=== PATIENT | female | born 1995 | race Caucasian/White ===

== ENCOUNTER → 2021-05-11 17:18 | Outpatient (BNVA) | payer MEDICAID, SELFPAY | PROVIDERS: Visit Provider Nurse Practitioner | DX: Z20.822 Contact with and (suspected) exposure to COVID-19 (principal) | CPT/HCPCS: 87635 ==

== ENCOUNTER 2021-05-14 20:47 | Emergency (ER) | payer BC, MEDICAID, SELFPAY ==
--- NOTE | 2021-05-14 21:03 | XRR_ITS ---
PROCEDURE INFORMATION: Exam: XR Chest Exam date and time: 05/14/2021 9:03 PM Age: 25 years old Clinical indication: Cough and shortness of breath; Additional info: SOB TECHNIQUE: Imaging protocol: XR of the chest. Views: 1 view. COMPARISON: No relevant prior studies available. FINDINGS: Lungs: Subtle opacity in the peripheral right lung base. Pleural spaces: Unremarkable. No pleural effusion. No pneumothorax. Heart/Mediastinum: Unremarkable. No cardiomegaly. Bones/joints: Unremarkable. XR/XR chest 1V portable [id number] IMPRESSION: Subtle opacity in the peripheral right lung base. Findings may reflect atelectasis with developing consolidation not excluded. Radiation Dose CTDIVOL = (mGy): DLP = (mGy-cm)
[2021-05-14 21:06] VITALS: BP 91/60; PULSE 82; RESP 20; TEMP 38.2; O2SAT 100
--- NOTE | 2021-05-14 21:50 | ED_ITS ---
Documented by User: MOISES Jackson 05/15/21 02:33 HPI - COVID General: Chief Complaint: COVID symptoms Time Seen by Provider: 05/14/21 21:37 Triage information: No known COVID + exposure last 14 days History of Present Illness: HPI Narrative: Patient is a 25-year-old female comes to the ED with upper respiratory symptoms. Patient tested positive for COVID-19 3 days ago. She reports having a dry cough cough, fever, nausea/vomiting and decreased food and fluid intake over the past couple days. She also reports having shortness of breath that has gotten worse over the last 24 hours. Patient took some Robitussin this morning. She has not received the COVID-19 vaccinations. COVID 19 common symptoms: positive fever(s), non-productive cough, dyspnea, fatigue, nausea and vomiting; negative chills, productive cough, headache(s), throat pain, nasal congestion or diarrhea COVID 19 other sytmptoms: negative chest pain COVID Results: SARS-CoV-2 RNA (RT-PCR) Detected (NOT DETECTED) A 05/11/21 17:18 05/11/21 Review of Systems Const: Reports: fever(s), change in appetite (decreased) and fatigue; Denies: chills Eyes: Denies: change in vision or eye discomfort ENMT: Denies: throat pain, odynophagia, nasal discharge or nasal congestion Card: Denies: chest pain, palpitations, edema, swelling of feet/ankles, dyspnea on exertion or orthopnea Resp: Reports: dyspnea and non-productive cough; Denies: productive cough GI: Reports: nausea and vomiting; Denies: abdominal pain, diarrhea, constipation or hematochezia : Denies: flank pain, dysuria or hematuria Musc: Denies: neck pain, back pain or extremity swelling Skin/Breast: Denies: rash or new lesions Neuro: Denies: headache(s), numbness in extremities or weakness in extremities Physical Exam Const: COMMON NORMALS: patient oriented x3 and alert GENERAL APPEARANCE: cooperative and ill appearing NUTRITIONAL APPEARANCE: obese HENMT: COMMON NORMALS: normocephalic HEAD & SCALP: normocephalic MOUTH: Normal oral and palatal mucosa present THROAT: posterior oropharynx normal and uvula midline Eye: COMMON NORMALS: Equal, round and reactive pupils present PUPIL: Yes Equal, round and reactive pupils present Neck/C-Spine: COMMON NORMALS: supple GENERAL: Yes normal visual inspection Resp: COMMON NORMALS: normal respiratory effort, No retractions and No use of accessory muscles EFFORT & INSPECTION: Yes able to speak in complete sentences, Yes tachypneic and Yes Actively coughing (Multiple coughing episodes throughout exam) dry AUSCULTATION: wheezes throughout Cardio: COMMON NORMALS: regular rate, regular rhythm, S1 normal heart sound present, S2 normal heart sound present, No gallops present (Cardio), No clicks present (Cardio), No murmurs present (Cardio) and Peripheral pulses 2+ throughout RATE: regular rate RHYTHM: regular rhythm HEART SOUNDS: S1 normal heart sound present and S2 normal heart sound present PERIPHERAL PULSES: Peripheral pulses 2+ throughout GI: COMMON NORMALS: Normal to inspection, nondistended, normoactive bowel sounds present, Soft to palpation, non-tender and no masses INSPECTION: Yes central obesity PALPATION: Yes Soft to palpation : COMMON NORMALS: Yes no CVA tenderness BLADDER/KIDNEY EXAM: Yes no CVA tenderness Back/Pelvis: COMMON NORMALS: no CVA tenderness Extremity: COMMON NORMALS: normal to inspection Neuro: COMMON NORMALS: patient oriented x3 and moves all extremities SENSORIUM/ORIENTATION: Yes alert Skin: GENERAL SKIN EXAM: dry skin Course Vital Signs: Vital signs: Vital Signs Temperature 99.0 F 05/15/21 01:11 Pulse Rate 80 05/15/21 01:11 Respiratory Rate 24 H 05/15/21 01:11 Blood Pressure 104/60 05/15/21 01:11 Pulse Oximetry 98 05/15/21 01:11 MDM - COVID Lab Data: Attestation: I reviewed the patient's lab results. Labs: Lab Results 05/14/21 05/14/21 05/14/21 22:20 22:20 22:20 WBC 4.7 10^3/uL 10^3/ uL (4.0-10.0) RBC 4.89 10^6/uL 10^6 /uL (4.1-5.3) Hgb 13.4 g/dL g/dL (11.5-15.3) Hct 41.7 % % (37.0-47.0) MCV 85.3 fl fl (81-99) MCH 27.4 pg L pg (28.0-34.0) MCHC 32.1 g/dL g/dL (30.0-36.0) RDW 13.3 % % (12.1-15.1) Plt Count 171 10^3/cmm 10^3 /cmm (130-400) MPV 10.4 fL fL (7.4-10.4) Neut % (Auto) 60.1 % % Lymph % (Auto) 32.8 % % Bulloch % (Auto) 6.9 % % Eos % (Auto) 0.0 % % Baso % (Auto) 0.0 % % Neut # (Auto) 2.81 10^3/uL 10^3 /uL (1.8-7.7) Lymph # (Auto) 1.5 10^3/uL 10^3/ uL (0.8-4.8) Bulloch # (Auto) 0.3 10^3/uL 10^3/ uL (0.2-0.9) Eos # (Auto) 0.0 10^3/uL 10^3/ uL (0.0-0.8) Baso # (Auto) 0.0 10^3/uL 10^3/ uL (0.0-0.1) Nucleated RBC % (a uto) 0 % % Nucleated RBCs # 0.0 /100WBC /100W BC D-Dimer 0.82 ug/mIFEU H u g/mIFEU (0-0.59) Specimen Type Sample Site ABG pO2 ABG HCO3 ABG Base Excess Young Test Hematocrit O2 Delivery Device Fabrication Engineer ID Sodium 139 mmol/L mmol/L (136-145) Potassium 3.5 mmol/L mmol/L (3.5-5.1) Chloride 99 mmol/L mmol/L (98-107) Carbon Dioxide 24 mmol/L mmol/L (22-29) Anion Gap 19.5 H (5-19) BUN 10 mg/dL mg/dL (6-20) Creatinine 0.8 mg/dL mg/dL (0.5-0.9) GFR Calculation 88.1 mL/min L mL/ min (90-130) Glucose 84 mg/dL mg/dL (65-115) Calculated Osmolal ity 286 mOsm/kg mOsm/ kg (285-295) Lactic Acid Calcium 8.7 mg/dL mg/dL (8.5-10.5) Total Bilirubin 0.5 mg/dL mg/dL (0.15-1.2) AST 32 U/L U/L (0-32) ALT 20 U/L U/L (0-33) Alkaline Phosphata se 65 IU/L IU/L (35-105) Total Protein 7.6 g/dL g/dL (6.6-8.7) Albumin 3.9 g/dL g/dL (3.5-5.2) Globulin 3.7 g/dL g/dL (1.3-4.6) Lipase 79 U/L H U/L (13-60) HCG, Qual 05/14/21 05/14/21 05/14/21 22:20 22:20 22:56 WBC RBC Hgb Hct MCV MCH MCHC RDW Plt Count MPV Neut % (Auto) Lymph % (Auto) Bulloch % (Auto) Eos % (Auto) Baso % (Auto) Neut # (Auto) Lymph # (Auto) Bulloch # (Auto) Eos # (Auto) Baso # (Auto) Nucleated RBC % (a uto) Nucleated RBCs # D-Dimer Specimen Type Arterial Sample Site Radial, right ABG pO2 73.8 mmHg L mmHg (80.0-100.0) ABG HCO3 20.0 mmol/L L mmo l/L (22-26) ABG Base Excess 1.2 mmol/L mmol/L (-2.0-2.0) Young Test Pos Hematocrit 37.4 % % (37-47) O2 Delivery Device Room air Fabrication Engineer ID Tamma Sodium Potassium Chloride Carbon Dioxide Anion Gap BUN Creatinine GFR Calculation Glucose Calculated Osmolal ity Lactic Acid 2.4 mmol/L H mmol /L (0.5-2.2) Calcium Total Bilirubin AST ALT Alkaline Phosphata se Total Protein Albumin Globulin Lipase HCG, Qual Negative (Negative) COVID Results: SARS-CoV-2 RNA (RT-PCR) Detected (NOT DETECTED) A 05/11/21 17:18 05/11/21 Discharge Plan Discharge Patient Disposition: Home Clinical Impression: COVID-19, Dehydration Condition: Stable Prescriptions: No Action No Known Home Medications RF: 0 Discharge Orders: Discharge ED (Routine); Ordered 05/15/21 Ordered By: Colleen Carlos Discharge Diet: Advance as tolerated Discharge Activity: Resume usual activity Patient Instructions: Dehydration (ED), Viral Syndrome (ED) Coding Level of Care Code ED Office Support Clerk for Chg Fwd Exam Comprehensive Documented by User: Colleen Carlos MD 05/15/21 00:32 HPI - COVID General: Chief Complaint: COVID symptoms Time Seen by Provider: 05/14/21 21:37 COVID Results: SARS-CoV-2 RNA (RT-PCR) Detected (NOT DETECTED) A 05/11/21 17:18 05/11/21 Physical Exam Const: COMMON NORMALS: no acute distress, patient oriented x3 and healthy appearing HENMT: COMMON NORMALS: normocephalic and atraumatic HEAD & SCALP: normocephalic and atraumatic Eye: COMMON NORMALS: Equal, round and reactive pupils present and EOMs intact bilaterally PUPIL: Yes Equal, round and reactive pupils present Neck/C-Spine: COMMON NORMALS: full ROM and supple Chest: COMMONS NORMALS: normal inspection of the chest and normal palpation of entire chest wall Resp: COMMON NORMALS: normal respiratory effort, No retractions, No use of accessory muscles and clear to auscultation bilaterally AUSCULTATION: clear to auscultation bilaterally Cardio: COMMON NORMALS: regular rate, regular rhythm and No murmurs present (Cardio) RATE: regular rate RHYTHM: regular rhythm GI: COMMON NORMALS: Normal to inspection, nondistended, normoactive bowel sounds present, Soft to palpation, non-tender and no masses PALPATION: Yes Soft to palpation Extremity: COMMON NORMALS: normal to inspection and full ROM Neuro: COMMON NORMALS: patient oriented x3, moves all extremities and no focal motor deficits Psych: COMMON NORMALS: mental status grossly normal, Normal thought process present and cooperative THOUGHT PROCESS: Normal thought process present Skin: COMMON NORMALS: no rashes or lesions noted and no wounds GENERAL SKIN EXAM: no rashes or lesions noted Course Vital Signs: Vital signs: Vital Signs Temperature 99.0 F 05/15/21 01:11 Pulse Rate 80 05/15/21 01:11 Respiratory Rate 24 H 10/13/21 01:11 Blood Pressure 104/60 05/15/21 01:11 Pulse Oximetry 98 05/15/21 01:11 MDM - COVID MDM Narrative: Medical decision making narrative: Patient presents here with Covid likely causing her symptoms patient was dehydrated feels much improved after IV fluids and her blood pressure is improved patient CT shows no acute findings besides changes consistent with Covid she is stable for discharge she is to follow-up PCP and return with worsening. Lab Data: Labs: Lab Results 05/14/21 05/14/21 05/14/21 22:20 22:20 22:20 WBC 4.7 10^3/uL 10^3/ uL (4.0-10.0) RBC 4.89 10^6/uL 10^6 /uL (4.1-5.3) Hgb 13.4 g/dL g/dL (11.5-15.3) Hct 41.7 % % (37.0-47.0) MCV 85.3 fl fl (81-99) MCH 27.4 pg L pg (28.0-34.0) MCHC 32.1 g/dL g/dL (30.0-36.0) RDW 13.3 % % (12.1-15.1) Plt Count 171 10^3/cmm 10^3 /cmm (130-400) MPV 10.4 fL fL (7.4-10.4) Neut % (Auto) 60.1 % % Lymph % (Auto) 32.8 % % Bulloch % (Auto) 6.9 % % Eos % (Auto) 0.0 % % Baso % (Auto) 0.0 % % Neut # (Auto) 2.81 10^3/uL 10^3 /uL (1.8-7.7) Lymph # (Auto) 1.5 10^3/uL 10^3/ uL (0.8-4.8) Bulloch # (Auto) 0.3 10^3/uL 10^3/ uL (0.2-0.9) Eos # (Auto) 0.0 10^3/uL 10^3/ uL (0.0-0.8) Baso # (Auto) 0.0 10^3/uL 10^3/ uL (0.0-0.1) Nucleated RBC % (a uto) 0 % % Nucleated RBCs # 0.0 /100WBC /100W BC D-Dimer 0.82 ug/mIFEU H u g/mIFEU (0-0.59) Specimen Type Sample Site ABG pO2 ABG HCO3 ABG Base Excess Young Test Hematocrit O2 Delivery Device Fabrication Engineer ID Sodium 139 mmol/L mmol/L (136-145) Potassium 3.5 mmol/L mmol/L (3.5-5.1) Chloride 99 mmol/L mmol/L (98-107) Carbon Dioxide 24 mmol/L mmol/L (22-29) Anion Gap 19.5 H (5-19) BUN 10 mg/dL mg/dL (6-20) Creatinine 0.8 mg/dL mg/dL (0.5-0.9) GFR Calculation 88.1 mL/min L mL/ min (90-130) Glucose 84 mg/dL mg/dL (65-115) Calculated Osmolal ity 286 mOsm/kg mOsm/ kg (285-295) Lactic Acid Calcium 8.7 mg/dL mg/dL (8.5-10.5) Total Bilirubin 0.5 mg/dL mg/dL (0.15-1.2) AST 32 U/L U/L (0-32) ALT 20 U/L U/L (0-33) Alkaline Phosphata se 65 IU/L IU/L (35-105) Total Protein 7.6 g/dL g/dL (6.6-8.7) Albumin 3.9 g/dL g/dL (3.5-5.2) Globulin 3.7 g/dL g/dL (1.3-4.6) Lipase 79 U/L H U/L (13-60) HCG, Qual 05/14/21 05/14/21 05/14/21 22:20 22:20 22:56 WBC RBC Hgb Hct MCV MCH MCHC RDW Plt Count MPV Neut % (Auto) Lymph % (Auto) Bulloch % (Auto) Eos % (Auto) Baso % (Auto) Neut # (Auto) Lymph # (Auto) Bulloch # (Auto) Eos # (Auto) Baso # (Auto) Nucleated RBC % (a uto) Nucleated RBCs # D-Dimer Specimen Type Arterial Sample Site Radial, right ABG pO2 73.8 mmHg L mmHg (80.0-100.0) ABG HCO3 20.0 mmol/L L mmo l/L (22-26) ABG Base Excess 1.2 mmol/L mmol/L (-2.0-2.0) Young Test Pos Hematocrit 37.4 % % (37-47) O2 Delivery Device Room air Fabrication Engineer ID Tamma Sodium Potassium Chloride Carbon Dioxide Anion Gap BUN Creatinine GFR Calculation Glucose Calculated Osmolal ity Lactic Acid 2.4 mmol/L H mmol /L (0.5-2.2) Calcium Total Bilirubin AST ALT Alkaline Phosphata se Total Protein Albumin Globulin Lipase HCG, Qual Negative (Negative) Imaging Data: CT Chest: Attestation: I personally reviewed and interpreted this imaging study as follows: Radiologist's impression: [id number] [address] [address] Scan Report Signed Patient: Fariha Michael Unit #: [id number] : 1995 Age/Sex: 25 / F ADM Date: 05/14/21 Loc: ER Room/Bed: Attending Dr: Ordering Provider/Ordering MD: Colleen Carlos MD Date of Service: 05/14/21 Procedure(s): CT angio chest PE protcl [id number] Accession Number(s): [id number] Report Number: [id number] PROCEDURE INFORMATION: Exam: CTA Chest With Contrast Exam date and time: 05/14/2021 11:00 PM Age: 25 years old Clinical indication: Cough and shortness of breath; Patient HX: Cough with SOB. Elevated d dimer. Covid + TECHNIQUE: Imaging protocol: Computed tomographic angiography of the chest with contrast. 3D rendering (Not supervised by radiologist): MIP and/or 3D reconstructed images were created by the technologist. Radiation optimization: All CT scans at this facility use at least one of these dose optimization techniques: automated exposure control; mA and/or kV adjustment per patient size (includes targeted exams where dose is matched to clinical indication); or iterative reconstruction. Contrast material: OMNI 350; Contrast volume: 67 ml; Contrast route: INTRAVENOUS (IV); COMPARISON: CR (CHEST, ) 05/14/2021 9:24 PM RADIATION DOSE METRICS: Total DLP (mGy-cm): 463.17 FINDINGS: Pulmonary arteries: Normal. No pulmonary emboli. Aorta: Unremarkable. No aortic aneurysm. No aortic dissection. Lungs: Patchy bilateral airspace infiltrates suggestive of an infectious process. Pleural spaces: Unremarkable. No pneumothorax. No pleural effusion. Heart: Unremarkable. No cardiomegaly. No pericardial effusion. Lymph nodes: Scattered prominent mediastinal lymph nodes measuring up to 10 mm, nonspecific. Spleen: Spleen enlarged at 13.7 cm. Bones/joints: Unremarkable. No acute fracture. Soft tissues: Unremarkable. CT/CT angio chest PE protcl [id number] IMPRESSION: 1. Negative for pulmonary embolus. 2. Patchy bilateral airspace infiltrates suggestive of an infectious process. 3. Scattered prominent mediastinal lymph nodes measuring up to 10 mm, nonspecific. 4. Spleen enlarged at 13.7 cm. Radiation Dose CTDIVOL = (mGy): DLP = 463.17 (mGy-cm) Dictated By: Hosea Valente MD Signed By: Hosea Valente MD Signed Date/Time: 05/15/21 0026 DD/ 2300 COVID Results: SARS-CoV-2 RNA (RT-PCR) Detected (NOT DETECTED) A 05/11/21 17:18 05/11 Discharge Plan Discharge Patient Disposition: Home Clinical Impression: COVID-19, Dehydration Condition: Stable Prescriptions: No Action No Known Home Medications RF: 0 Discharge Orders: Discharge ED (Routine); Ordered 05/15/21 Ordered By: Colleen Carlos Discharge Diet: Advance as tolerated Discharge Activity: Resume usual activity Patient Instructions: Dehydration (ED), Viral Syndrome (ED) Coding Level of Care Code ED Office Support Clerk for Chg Fwd Exam Comprehensive
[2021-05-14] MEDS: sodium chloride 0.9% 1,000 ML 999 ML IV ×2 (22:25→22:57)
[2021-05-14 22:30] VITALS: PULSE 92; RESP 22; O2SAT 99
[2021-05-14] MEDS: albuterol 8 gm MDI 2 PUFF INHALATION (22:30)
[2021-05-14 22:35] VITALS: PULSE 95; RESP 22; O2SAT 99
[2021-05-14 22:38] VITALS: BP 79/43; PULSE 82; RESP 36; TEMP 39.3; O2SAT 94
[2021-05-14 22:42] LABS: Hematocrit 41.7 % (37.0-47.0); Hemoglobin 13.4 g/dL (11.5-15.3); Lymphocytes # 1.5 10^3/uL (0.8-4.8); Lymphocytes % 32.8 %; Mean Corpuscular HGB Conc 32.1 g/dL (30.0-36.0); Mean Corpuscular Hemoglobin 27.4 pg (28.0-34.0); Mean Corpuscular Volume 85.3 fl (81-99); Mean Platelet Volume 10.4 fL (7.4-10.4); Monocytes # 0.3 10^3/uL (0.2-0.9); Monocytes % 6.9 %; Neutrophils # 2.81 10^3/uL (1.8-7.7); Neutrophils % 60.1 %; Nucleated Red Blood Cells % 0 %; Platelet Count 171 10^3/cmm (130-400); Red Blood Count 4.89 10^6/uL (4.1-5.3); Red Cell Distribution Width 13.3 % (12.1-15.1); White Blood Count 4.7 10^3/uL (4.0-10.0)
[2021-05-14] MEDS: acetaminophen 500 mg Tablet 1000 MG PO (22:50)
[2021-05-14 22:55] LABS: HCG, Serum Qual Negative (Negative)
[2021-05-14 22:57] LABS: D Dimer 0.82 ug/mIFEU (0-0.59)
[2021-05-14] MEDS: ondansetron 2 mg/ML SDV 2 mL 4 MG IVP ×2 (22:58→23:08)
[2021-05-14 23:00] VITALS: BP 108/54; PULSE 77; RESP 33; O2SAT 98
--- NOTE | 2021-05-14 23:00 | CTR_ITS ---
PROCEDURE INFORMATION: Exam: CTA Chest With Contrast Exam date and time: 05/14/2021 11:00 PM Age: 25 years old Clinical indication: Cough and shortness of breath; Patient HX: Cough with SOB. Elevated d dimer. Covid + TECHNIQUE: Imaging protocol: Computed tomographic angiography of the chest with contrast. 3D rendering (Not supervised by radiologist): MIP and/or 3D reconstructed images were created by the technologist. Radiation optimization: All CT scans at this facility use at least one of these dose optimization techniques: automated exposure control; mA and/or kV adjustment per patient size (includes targeted exams where dose is matched to clinical indication); or iterative reconstruction. Contrast material: OMNI 350; Contrast volume: 67 ml; Contrast route: INTRAVENOUS (IV); COMPARISON: CR (CHEST, ) 05/14/2021 9:24 PM RADIATION DOSE METRICS: Total DLP (mGy-cm): 463.17 FINDINGS: Pulmonary arteries: Normal. No pulmonary emboli. Aorta: Unremarkable. No aortic aneurysm. No aortic dissection. Lungs: Patchy bilateral airspace infiltrates suggestive of an infectious process. Pleural spaces: Unremarkable. No pneumothorax. No pleural effusion. Heart: Unremarkable. No cardiomegaly. No pericardial effusion. Lymph nodes: Scattered prominent mediastinal lymph nodes measuring up to 10 mm, nonspecific. Spleen: Spleen enlarged at 13.7 cm. Bones/joints: Unremarkable. No acute fracture. Soft tissues: Unremarkable. CT/CT angio chest PE protcl [id number] IMPRESSION: 1. Negative for pulmonary embolus. 2. Patchy bilateral airspace infiltrates suggestive of an infectious process. 3. Scattered prominent mediastinal lymph nodes measuring up to 10 mm, nonspecific. 4. Spleen enlarged at 13.7 cm. Radiation Dose CTDIVOL = (mGy): DLP = 463.17 (mGy-cm)
[2021-05-14 23:02] LABS: Alanine Aminotransferase 20 U/L (0-33); Albumin Level 3.9 g/dL (3.5-5.2); Alkaline Phosphatase 65 IU/L (35-105); Anion Gap 19.5 (5-19); Aspartate Amino Transferase 32 U/L (0-32); Blood Urea Nitrogen 10 mg/dL (6-20); Calcium 8.7 mg/dL (8.5-10.5); Carbon Dioxide 24 mmol/L (22-29); Chloride 99 mmol/L (98-107); Globulin 3.7 g/dL (1.3-4.6); Glomerular Filtration Rate 88.1 mL/min (90-130); Glucose 84 mg/dL (65-115); Lipase 79 U/L (13-60); Osmolality Calculated 286 mOsm/kg (285-295); Potassium 3.5 mmol/L (3.5-5.1); Slide Review Slide Review Perform; Sodium 139 mmol/L (136-145); Total Bilirubin 0.5 mg/dL (0.15-1.2); Total Protein 7.6 g/dL (6.6-8.7)
[2021-05-14 23:03] LABS: Lactic Sepsis W/Reflex 2.4 mmol/L (0.5-2.2)
[2021-05-14 23:05] LABS: Arterial Blood Gas Hematocrit 37.4 % (37-47); Base Excess ABG 1.2 mmol/L (-2.0-2.0); Blood Gas Allen Test Pos; Blood Gas Sample Site Radial, right; Blood Gas Sample Type Arterial; Oxygen Device ROOM AIR; PO2 ABG 73.8 mmHg (80.0-100.0)
[2021-05-14] MEDS: morphine 4 mg/mL SDV 1 mL IVP (23:09)
[2021-05-14] MEDS: iohexol 350 mg/mL 100 mL Btl IV (23:17)
[2021-05-14] MEDS: ibuprofen 800 mg tablet PO (23:29)
[2021-05-14] MEDS: LORazepam 2 mg/mL INJ 1 mL 1 MG IVP (23:29)
[2021-05-14 23:36] VITALS: BP 96/63; PULSE 72; RESP 32; O2SAT 97
[2021-05-15 00:26] LABS: Reflex Lactate Order REFLEX LACTIC ORDERD
[2021-05-15 00:30] VITALS: O2SAT 98
[2021-05-15 01:00] VITALS: BP 104/55; PULSE 80; RESP 24; TEMP 37.2; O2SAT 98
[2021-05-15 01:11] VITALS: BP 104/60; PULSE 80; RESP 24; TEMP 37.2; O2SAT 98
== END 2021-05-15 01:10 | disposition home or self-care (01) ==
PROVIDERS: Physician Assistant; Emergency Provider Emergency Medicine
DX: U07.1 COVID-19 (principal); E86.0 Dehydration
CPT/HCPCS: 36600; 71045; 71275; 80053; 82803; 83605; 83690; 84703; 85025; 85378; 87040; 94640; 96361; 96374; 96375; 96376; 99284; J2060; J2270; J2405; J2930; J3535; J7030; Q9967

== ENCOUNTER → 2022-05-05 15:33 | Outpatient (BNVA) | payer BC, MEDICAID, SELFPAY | PROVIDERS: Visit Provider Obstetrics & Gynecology | DX: Z01.419 Encounter for gynecological examination (general) (routine) without abnormal findings (principal); Z20.2 Contact with and (suspected) exposure to infections with a predominantly sexual mode of transmission; Z86.19 Personal history of other infectious and parasitic diseases | CPT/HCPCS: 87491; 87591; 87661; 88175 ==

== ENCOUNTER → 2022-05-23 09:43 | Outpatient (BNVA) | payer BC, MEDICAID, SELFPAY | PROVIDERS: Visit Provider Obstetrics & Gynecology | DX: Z12.4 Encounter for screening for malignant neoplasm of cervix (principal) | CPT/HCPCS: 88175 ==

== ENCOUNTER 2023-02-27 06:08 | Emergency (ER) | payer BC, MEDICAID, SELFPAY ==
[2023-02-27 06:18] VITALS: BP 115/57; PULSE 74; RESP 15; TEMP 36.8; O2SAT 100; BMI 35.9
--- NOTE | 2023-02-27 06:34 | ED_ITS ---
HPI - Dental/Oral General: Chief complaint: Dental/Oral Stated complaint: Weakness on Left Side, dental pain, head pain Time Seen by Provider: 02/27/23 06:14 Source: patient Mode of arrival: ambulatory [facility] ED PFS: Medical History (Updated 12/20/22 @ 13:21 by Faye Geronimo MD) Other reactions to severe stress Psychiatric care Surgical History Previous section Family History Grandfather Cancer colon Colon cancer Grandmother Cancer colon Colon cancer Other Thyroid disease Denies family history of Pancreatic cancer Ovarian cancer Thyroid cancer Diabetes CAD (coronary artery disease) Clotting disorder Dementia Hyperlipidemia Chronic kidney disease (CKD) Breast cancer Anesthesia complication Bleeding disorder Lung disease Hypertension Uterine cancer Stroke Social History Smoking and tobacco status: never smoked Smoking risk assessment/counseling performed?: No Alcohol intake: never Desire information about alcohol rehabilitation?: No Counseling given: No Substance/Drug Use: never Desire information about substance/drug rehabilitation?: No Counseling given: No Adopted: No Caregiver/support person: No Lives independently: Yes Household members: children Marital status: Single Number of children: 1 Current occupational status: employed Current occupation: [employer] Current occupational exposures/hazards: No Current gender identity: Female Special joyce needs: No Female Reproductive History: Para: 1 Course Vital Signs: Vital signs: Vital Signs Temperature 98.3 F 02/27/23 06:18 Pulse Rate 74 02/27/23 06:18 Respiratory Rate 15 02/27/23 06:18 Blood Pressure 115/57 02/27/23 06:18 Pulse Oximetry 100 02/27/23 06:18 Discharge Plan Discharge Condition: Stable Prescriptions: No Action biotin 10 mg tablet 10 mg PO DAILY buspirone 5 mg tablet 5 mg PO BID 30 Days Qty: 60 3RF fluoxetine 40 mg capsule 40 mg PO DAILY 30 Days Qty: 30 3RF Referrals: Darin Damon MD [Primary Care Provider] - Coding Level of Care Code ED Hop Grower for Alize Ferrer
--- NOTE | 2023-02-27 06:41 | W.ED.GENADLT ---
HPI - General Adult General: Chief complaint: Dental/Oral Stated complaint: Weakness on Left Side, dental pain, head pain Time Seen by Provider: 02/27/23 06:14 Source: patient Mode of arrival: ambulatory History of Present Illness: 27-year-old female who presents to the emergency room with rather vague symptoms. She difficult to get her specifically to name the issue that brought her here. She told the triage nurse that she had an infected note tooth on the left side of her face. When I talked to her she focused more on the left side particularly the arm being weak. But she is able to move she has facial symmetry. She has no real weakness demonstrable in the left arm or leg. She also mentioned feeling very tired after she ate and wanting to have that evaluated. Her last known well would have been around midnight when she went to bed she said she woke up with these symptoms this morning. She not had any chest pain or shortness of breath no abdominal pain no difficulty speaking or swallowing no vision changes. Onset (ago): minute(s) Relieving factors: none Exacerbating factors: none Associated symptoms: Deny chest pain, confusion, cough, diaphoresis, decreased appetite, dyspnea, fevers/chills, headache(s), malaise, nausea, rash, palpitations, seizures, short of breath, syncope, vomiting or weakness Review of Systems Const: Denies: malaise or diaphoresis Card: Denies: chest pain, palpitations or syncope Resp: Denies: dyspnea GI: Denies: nausea or vomiting Skin/Breast: Denies: rash Neuro: Denies: headache(s) or confusion PFS ED PFSH: Medical History (Updated 02/27/23 @ 07:29 by Jono Jeronimo DO) Other reactions to severe stress Psychiatric care Surgical History Previous section Family History Grandfather Cancer colon Colon cancer Grandmother Cancer colon Colon cancer Other Thyroid disease Denies family history of Pancreatic cancer Ovarian cancer Thyroid cancer Diabetes CAD (coronary artery disease) Clotting disorder Dementia Hyperlipidemia Chronic kidney disease (CKD) Breast cancer Anesthesia complication Bleeding disorder Lung disease Hypertension Uterine cancer Stroke Social History Smoking and tobacco status: never smoked Smoking risk assessment/counseling performed?: No Alcohol intake: never Desire information about alcohol rehabilitation?: No Counseling given: No Substance/Drug Use: never Desire information about substance/drug rehabilitation?: No Counseling given: No Adopted: No Caregiver/support person: No Lives independently: Yes Household members: children Marital status: Single Number of children: 1 Current occupational status: employed Current occupation: [employer] Current occupational exposures/hazards: No Current gender identity: Female Special joyce needs: No Female Reproductive History: Para: 1 Course Vital Signs: Vital signs: Vital Signs Temperature 98.3 F 02/27/23 06:18 Pulse Rate 72 02/27/23 07:36 Respiratory Rate 17 02/27/23 07:36 Blood Pressure 116/61 02/27/23 07:36 Pulse Oximetry 98 02/27/23 07:36 MDM - General Adult Medical Decision Making NIH score is 0 clinically does not appear to have a stroke. The CT of the head is negative. Discharge patient home with oral antibiotics for her tooth pain Augmentin 875 twice daily x7 days return if has any further problems. Medical Records I reviewed the patient's medical records. Lab Data I reviewed the patient's lab results. 02/27/23 07:10 02/27/23 07:[address] 02/27/23 06:42 IMPRESSION: No acute intracranial abnormality. Laboratory Results WBC 6.9 10^3/uL (4.0-10.0) 02/27/23 07:10 RBC 4.50 10^6/uL (4.1-5.3) 02/27/23 07:10 Hgb 12.7 g/dL (11.5-15.3) 02/27/23 07:10 Hct 39.8 % (37.0-47.0) 02/27/23 07:10 MCV 88.4 fl (81-99) 02/27/23 07:10 MCH 28.2 pg (28.0-34.0) 02/27/23 07:10 MCHC 31.9 g/dL (30.0-36.0) 02/27/23 07:10 RDW 12.6 % (12.1-15.1) 02/27/23 07:10 Plt Count 198 10^3/cmm (130-400) 02/27/23 07:10 MPV 10.0 fL (7.4-10.4) 02/27/23 07:10 Neut % (Auto) 41.6 % 02/27/23 07:10 Lymph % (Auto) 43.7 % 02/27/23 07:10 [place] % (Auto) 9.8 % 02/27/23 07:10 Eos % (Auto) 3.9 % 02/27/23 07:10 Baso % (Auto) 0.7 % 02/27/23 07:10 Neut # (Auto) 2.89 10^3/uL (1.8-7.7) 02/27/23 07:10 Lymph # (Auto) 3.0 10^3/uL (0.8-4.8) 02/27/23 07:10 [place] # (Auto) 0.7 10^3/uL (0.2-0.9) 02/27/23 07:10 Eos # (Auto) 0.3 10^3/uL (0.0-0.8) 02/27/23 07:10 Baso # (Auto) 0.1 10^3/uL (0.0-0.1) 02/27/23 07:10 Nucleated RBC % (auto) 0 % 02/27/23 07:10 Nucleated RBCs # 0.0 /100WBC 02/27/23 07:10 Sodium 138 mmol/L (136-145) 02/27/23 07:10 Potassium 3.7 mmol/L (3.5-5.1) 02/27/23 07:10 Chloride 103 mmol/L (98-107) 02/27/23 07:10 Carbon Dioxide 26 mmol/L (22-29) 02/27/23 07:10 Anion Gap 12.7 (5-19) 02/27/23 07:10 BUN 17 mg/dL (6-20) 02/27/23 07:10 Creatinine 0.8 mg/dL (0.5-0.9) 02/27/23 07:10 GFR Calculation 86.7 mL/min (90-130) L 02/27/23 07:10 Glucose 87 mg/dL (65-115) 02/27/23 07:10 Calculated Osmolality 287 mOsm/kg (285-295) 02/27/23 07:10 Calcium 8.9 mg/dL (8.5-10.5) 02/27/23 07:10 Total Bilirubin 0.3 mg/dL (0.15-1.2) 02/27/23 07:10 AST 13 U/L (0-32) 02/27/23 07:10 ALT 11 U/L (0-33) 02/27/23 07:10 Alkaline Phosphatase 55 U/L (35-105) 02/27/23 07:10 Total Protein 6.7 g/dL (6.6-8.7) 02/27/23 07:10 Albumin 3.9 g/dL (3.5-5.2) 02/27/23 07:10 Globulin 2.8 g/dL (1.3-4.6) 02/27/23 07:10 HCG, Qual Negative (Negative) 02/27/23 07:10 Urine Color Yellow (Yellow) 02/27/23 07:00 Urine Appearance Hazy (CLEAR) A 02/27/23 07:00 Urine pH 5 (5-7) 02/27/23 07:00 Ur Specific [place] 1.025 (1.005-1.030) 02/27/23 07:00 Urine Protein Neg (Negative) 02/27/23 07:00 Urine Glucose (UA) Norm (Normal) 02/27/23 07:00 Urine Ketones Negative (Negative) 02/27/23 07:00 Urine Blood Neg (Negative) 02/27/23 07:00 Urine Nitrate Negative (Negative) 02/27/23 07:00 Urine Bilirubin Neg (Negative) 02/27/23 07:00 Urine Urobilinogen Norm mg/dL (Negative) 02/27/23 07:00 Ur Leukocyte Esterase Negative (Negative) 02/27/23 07:00 Urine RBC 5-10 /hpf (0-2) H 02/27/23 07:00 Urine WBC 5-10 /hpf (0-5) H 02/27/23 07:00 Ur Squamous Epith Cells 25-40 /hpf (0-5) H 02/27/23 07:00 Amorphous Sediment Not Reportable 02/27/23 07:00 Urine Bacteria 3+ /hpf (NONE) H 02/27/23 07:00 Discharge Plan Discharge Patient Disposition: Home Clinical Impression: Toothache Condition: Stable Prescriptions: New amoxicillin-pot clavulanate 875-125 mg tablet 1 tab PO BID 7 Days Qty: 14 0RF No Action biotin 10 mg tablet 10 mg PO DAILY buspirone 5 mg tablet 5 mg PO BID 30 Days Qty: 60 3RF fluoxetine 40 mg capsule 40 mg PO DAILY 30 Days Qty: 30 3RF Discharge Orders: Discharge ED (Routine); Ordered 02/27/23 Ordered By: Jono Jeronimo Referrals: Darin Damon MD [Primary Care Provider] - Patient Instructions: Opioid Safety, Pain Management Activity Restrictions/Additional Instructions: You are evaluated to complain of left-sided weakness. Your stroke score was [address] was negative. You have also complained of some tooth pain and was started on antibiotics for this. If you have any worsening or changes symptoms return to the emergency room. 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
--- NOTE | 2023-02-27 06:42 | CTR_ITS ---
PROCEDURE INFORMATION: Exam: CT Head Without Contrast Exam date and time: 02/27/2023 6:52 AM Age: 27 years old Clinical indication: Weakness, extremity; Left; Additional info: L sided weakness TECHNIQUE: Imaging protocol: Computed tomography of the head without contrast. Radiation optimization: All CT scans at this facility use at least one of these dose optimization techniques: automated exposure control; mA and/or kV adjustment per patient size (includes targeted exams where dose is matched to clinical indication); or iterative reconstruction. REPORTING DATA: Count of CT and Cardiac NM exams in prior 12 months: This patient has received 0 known CTs and 0 known cardiac nuclear medicine studies in the 12 months prior to the current study. COMPARISON: No relevant prior studies available. RADIATION DOSE METRICS: Total DLP (mGy-cm): 984.18 FINDINGS: Brain: Normal. No hemorrhage. Unremarkable white matter. No mass effect. Cerebral ventricles: No ventriculomegaly. Paranasal sinuses: Visualized sinuses are unremarkable. No fluid levels. Mastoid air cells: Visualized mastoid air cells are well aerated. Bones/joints: Unremarkable. No acute fracture. Soft tissues: Unremarkable. CT/CT head wo con* [id number] IMPRESSION: No acute intracranial abnormality.
--- NOTE | 2023-02-27 06:49 | ECG_ITS ---
[facility] Test Date: 2023-02-27 Pat Name: Fariha Michael Department: Room: Gender: Female Home Designer: : 1995 Requested By: Jono Arriola Order Number: [id number] Ada MD: Quang Miller M.D. Measurements Intervals [place] Rate: 62 P: 24 ID: [id number] QRS: 19 QRSD: 87 T: 16 QT: 382 QTc: 390 Interpretive Statements SINUS RHYTHM No previous ECG available for comparison Electronically Signed On 02-27-2023 18:37:51 CDT by Quang Miller M.D. [email or web address]
[2023-02-27 07:18] LABS: Add Urine Culture? No; Add Urine Microscopic? YES; Bacteria Urine 3+ /hpf; Bilirubin Urine Neg (Negative); Blood Urine Neg (Negative); Glucose Urine UA Norm (Normal); Ketones Urine Negative (Negative); Leukocyte Esterase Urine Negative (Negative); Nitrate Urine Negative (Negative); Protein Urine Neg (Negative); Specific Gravity, Urine 1.025 (1.005-1.030); Squamous Epithelial Cell Urine 25-40 /hpf (0-5); Urine Appearance Hazy (CLEAR); Urine Color Yellow (Yellow); Urobilinogen Urine Norm (Negative); pH Urine 5 (5-7)
[2023-02-27 07:33] LABS: HCG, Serum Qual Negative (Negative)
[2023-02-27 07:36] VITALS: BP 116/61; PULSE 72; RESP 17; O2SAT 98
[2023-02-27 07:38] LABS: Basophils # 0.1 10^3/uL (0.0-0.1); Basophils % 0.7 %; Eosinophils # 0.3 10^3/uL (0.0-0.8); Eosinophils % 3.9 %; Hematocrit 39.8 % (37.0-47.0); Hemoglobin 12.7 g/dL (11.5-15.3); Lymphocytes % 43.7 %; Mean Corpuscular HGB Conc 31.9 g/dL (30.0-36.0); Mean Corpuscular Hemoglobin 28.2 pg (28.0-34.0); Mean Corpuscular Volume 88.4 fl (81-99); Monocytes # 0.7 10^3/uL (0.2-0.9); Monocytes % 9.8 %; Neutrophils # 2.89 10^3/uL (1.8-7.7); Neutrophils % 41.6 %; Nucleated Red Blood Cells % 0 %; Platelet Count 198 10^3/cmm (130-400); Red Cell Distribution Width 12.6 % (12.1-15.1); White Blood Count 6.9 10^3/uL (4.0-10.0)
[2023-02-27 07:39] LABS: Alanine Aminotransferase 11 U/L (0-33); Albumin Level 3.9 g/dL (3.5-5.2); Alkaline Phosphatase 55 U/L (35-105); Anion Gap 12.7 (5-19); Aspartate Amino Transferase 13 U/L (0-32); Blood Urea Nitrogen 17 mg/dL (6-20); Calcium 8.9 mg/dL (8.5-10.5); Carbon Dioxide 26 mmol/L (22-29); Chloride 103 mmol/L (98-107); Globulin 2.8 g/dL (1.3-4.6); Glomerular Filtration Rate 86.7 mL/min (90-130); Glucose 87 mg/dL (65-115); Osmolality Calculated 287 mOsm/kg (285-295); Potassium 3.7 mmol/L (3.5-5.1); Sodium 138 mmol/L (136-145); Total Bilirubin 0.3 mg/dL (0.15-1.2); Total Protein 6.7 g/dL (6.6-8.7)
== END 2023-02-27 07:38 | disposition home or self-care (01) ==
PROVIDERS: Emergency Provider Family Medicine; PCP Family Medicine
DX: K08.89 Other specified disorders of teeth and supporting structures (principal)
CPT/HCPCS: 36415; 70450; 80053; 81001; 84703; 85025; 93005; 99283

== ENCOUNTER 2023-04-12 12:45 | Emergency (ER) | payer BC, MEDICAID, SELFPAY ==
[2023-04-12 13:05] VITALS: BP 95/53; PULSE 75; TEMP 36.6; O2SAT 97; BMI 37.0
--- NOTE | 2023-04-12 13:20 | XRR_ITS ---
PROCEDURE INFORMATION: Exam: XR Left Tibia and Fibula Exam date and time: 04/12/2023 1:37 PM Age: 27 years old Clinical indication: Injury or trauma; Fall; Additional info: Assessing for foreign body TECHNIQUE: Imaging protocol: Radiologic exam of the left tibia and fibula. Views: 2 views. COMPARISON: No relevant prior studies available. FINDINGS: Bones/joints: Knee and ankle alignment are normal. There is no visible fracture. Soft tissues: There is a 5 x 3 mm calcific density projecting over the pretibial soft tissues on the lateral view. There is subtle adjacent subcutaneous edema. XR/XR tibia fibula LT 2V [id number] IMPRESSION: 5 x 3 mm calcific density projecting over the pretibial soft tissues on the lateral view. Possible foreign body or dystrophic calcification.
--- NOTE | 2023-04-12 13:21 | ED_ITS ---
HPI - Wound/Laceration General: Chief Complaint: Wound/Laceration Stated Complaint: Left leg lac Time Seen by Provider: 04/12/23 12:50 History of Present Illness: Enedina Michael is a 27-year-old female that presents to the emergency department with laceration to the anterior aspect of the left lower leg. Patient states that she tripped while in the chicken coop and caught her leg on a screw sticking out of a piece of wood. Bleeding controlled prior to her arrival She denies striking her head or LOC Did state that she had a syncopal episode while sitting at the kitchen table after the event. She states she did not strike her head at that time either. Patient's tetanus update was 2 to 3 years ago Associated symptoms: Denies chills, fever(s), nausea or vomiting Review of Systems General: Reports: 10 or more systems reviewed and unremarkable except in HPI and below Const: Denies: fever(s), chills, change in appetite, change in weight, fatigue or malaise Card: Denies: chest pain, palpitations, irregular heart rhythm, edema, dyspnea on exertion, orthopnea or leg pain with exertion Resp: Denies: dyspnea, productive cough, non-productive cough, wheezing, stridor or chest congestion GI: Denies: abdominal pain, nausea, vomiting, dysphagia, diarrhea, constipation, bloating, GI cramping or hematochezia : Denies: flank pain, difficulty voiding, dysuria, urinary frequency, urinary urgency, urinary hesitancy, oliguria or hematuria Musc: Denies: neck pain, back pain, extremity pain, joint pain, joint swelling, joint redness, joint warmth or muscle weakness Skin/Breast: Denies: rash, pruritus, erythema, photosensitivity or new lesions Neuro: Denies: headache(s), numbness in extremities, weakness in extremities, sensory changes, lack of coordination, difficulty walking, frequent falls, dizziness, confusion, Slurred speech present, difficulty communicating thoughts, seizure-like activity or involuntary movements Endo: Denies: polyuria, polydipsia or tired all the time Jasvir/Lymph: Denies: easy bruising or easy bleeding PFS ED PFSH: Medical History (Updated 04/12/23 @ 15:51 by FAYE Pope) Other reactions to severe stress Psychiatric care Surgical History Previous section Family History Grandfather Cancer colon Colon cancer Grandmother Cancer colon Colon cancer Other Thyroid disease Denies family history of Pancreatic cancer Ovarian cancer Thyroid cancer Diabetes CAD (coronary artery disease) Clotting disorder Dementia Hyperlipidemia Chronic kidney disease (CKD) Breast cancer Anesthesia complication Bleeding disorder Lung disease Hypertension Uterine cancer Stroke Social History Smoking and tobacco status: never smoked Smoking risk assessment/counseling performed?: No Alcohol intake: never Desire information about alcohol rehabilitation?: No Counseling given: No Substance/Drug Use: never Desire information about substance/drug rehabilitation?: No Counseling given: No Adopted: No Caregiver/support person: No Lives independently: Yes Household members: children Marital status: Single Number of children: 1 Current occupational status: employed Current occupation: [employer] Current occupational exposures/hazards: No Current gender identity: Female Special joyce needs: No Female Reproductive History: Para: 1 Physical Exam Const: COMMON NORMALS: no acute distress, patient oriented x3 and alert GENERAL APPEARANCE: cooperative ORIENTATION/CONSCIOUSNESS: Yes awake, Yes oriented to person, Yes oriented to place and Yes oriented to time Neck/C-Spine: COMMON NORMALS: full ROM GENERAL: Yes normal visual inspection Resp: COMMON NORMALS: normal respiratory effort, No retractions and No use of accessory muscles EFFORT & INSPECTION: Yes able to speak in complete sentences and Yes symmetric chest movement Cardio: COMMON NORMALS: regular rate and Peripheral pulses 2+ throughout RATE: regular rate PERIPHERAL PULSES: Peripheral pulses 2+ throughout GI: COMMON NORMALS: Normal to inspection, nondistended, normoactive bowel sounds present and Soft to palpation INSPECTION: Yes normal to inspection PALPATION: Yes Soft to palpation Extremity: COMMON NORMALS: normal to inspection GENERAL: Yes normal exam except as noted Neuro: COMMON NORMALS: patient oriented x3 SENSORIUM/ORIENTATION: Yes alert, Yes oriented to person, Yes oriented to place and Yes oriented to time CRANIAL NERVES: Yes CN normal except as noted Psych: COMMON NORMALS: mental status grossly normal, Normal thought process present, cooperative, activity/motor behavior normal, denies homicidal ideation and denies suicidal ideation THOUGHT PROCESS: Normal thought process present Skin: COMMON NORMALS: no rashes or lesions noted and turgor normal GENERAL SKIN EXAM: no rashes or lesions noted and turgor normal WOUNDS: Yes wounds noted (2cm linear laceration to anterior aspect of left lower extremity) size (2cm) and open; no drainage Course Vital Signs: Vital signs: Vital Signs Temperature 97.9 F 04/12/23 13:05 Pulse Rate 75 04/12/23 13:05 Blood Pressure 95/53 04/12/23 13:05 Pulse Oximetry 97 04/12/23 13:05 Oxygen Delivery Me thod Room Air 04/12/23 13:05 MDM - Wound/Laceration Medical Decision Making Was evaluated in the emergency department after sustaining a laceration to the anterior aspect of the left lower extremity. Injury was caused by the head of the screw that was sticking out from a wood board. Patient underwent XR imaging of the extremity which revealed a possible foreign body. The radiologist is reading it as a 5 x 3 mm calcified density projecting over the pretibial soft tissue on the lateral view. Possible foreign body versus dystrophic calcification. I have no imaging to compare to. The area has been anesthetized I attempted to localize over the area. Unfortunately due to the 1.5 cm nature of the incision, it needed to be open just slightly more in the direction that the deeper wound bed was tracking. Patient is poorly tolerating due to her anxiety. Going to give her 2 mg of Ativan to assist. I was able to fully explore the wound bed. I was not able to find an injury to the fascia or any foreign bodies. To continue searching will cause destruction of soft tissue that previously had been intact. I have opted to discontinue the exploration and closed. Closed using 3-0 nylon?3 horizontal mattress sutures. The wound borders were well approximated without any additional bleeding. Patient tolerated the procedure well. She is can have the sutures out in 2 weeks; this can be done at PCP or here in the emergency department Should she develop any signs of infection?redness warmth or drainage she is to return to the emergency department. All questions answered Lab Data Radiology Impressions Tibia/Fibula X-Ray 04/12/23 13:20 IMPRESSION: 5 x 3 mm calcific density projecting over the pretibial soft tissues on the lateral view. Possible foreign body or dystrophic calcification. Discharge Plan Discharge Patient Disposition: Home Clinical Impression: Laceration Condition: Stable Prescriptions: No Action biotin 10 mg tablet 10 mg PO DAILY buspirone 5 mg tablet 5 mg PO BID 30 Days Qty: 60 3RF fluoxetine 40 mg capsule 40 mg PO DAILY 30 Days Qty: 30 3RF Discharge Orders: Discharge ED (Routine); Ordered 04/12/23 Ordered By: Mary Bhatti Referrals: Darin Damon MD [Primary Care Provider] - Discharge Diet: Advance as tolerated Discharge Activity: Resume usual activity Patient Instructions: Laceration (ED), Pain Management Activity Restrictions/Additional Instructions: sutures out in 12-14 days Keep the area clean and dry. You may shower and let soap and water run over the site but no submerging it. Pat dry You do not require any ointments creams or lotions. 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
[2023-04-12] MEDS: LORazepam 2 mg/mL INJ 1 mL IM (14:56)
== END 2023-04-12 15:57 | disposition home or self-care (01) ==
PROVIDERS: Emergency Provider Nurse Practitioner; PCP Family Medicine
DX: S81.812A Laceration without foreign body, left lower leg, initial encounter (principal); W01.118A Fall on same level from slipping, tripping and stumbling with subsequent striking against other sharp object, initial encounter; Y92.008 Other place in unspecified non-institutional (private) residence as the place of occurrence of the external cause; R55 Syncope and collapse
CPT/HCPCS: 12001; 73590; 96372; 99284; J2060

== ENCOUNTER 2023-11-15 02:37 | Emergency (ER) | payer SELFPAY ==
[2023-11-15 02:43] VITALS: BP 137/93; PULSE 98; RESP 15; TEMP 36.6; O2SAT 100; BMI 39.6
[2023-11-15] MEDS: ketorolac 30 mg/mL INJ IM (03:39)
[2023-11-15] MEDS: oxyCODONE-APAP 5-325 mg Tablet 2 TAB PO (03:39)
[2023-11-15] MEDS: clindamycin 150 mg Capsule 600 MG PO (03:39)
--- NOTE | 2023-11-15 03:46 | ED_ITS ---
HPI - Dental/Oral General: Chief complaint: Dental/Oral Stated complaint: left side of face is pain and feels numb Time Seen by Provider: 11/15/23 03:10 History of Present Illness: 28-year-old female with dental pain. Sh bala notes it has been sore for a few days, but has been significantly painful since around 11:30 PM. She notes a full swollen feeling to the left side of her face, with some ear pain, and transient numbness and tingling that seems to come and go to the left face and jaw. No vision problems. No weakness. No fever. No vomiting. Associated symptoms: Reports ear or mastoid pain; Denies fever(s) Review of Systems Const: Denies: fever(s) Eyes: Denies: change in vision ENMT: Reports: mouth pain and ear or mastoid pain; Denies: throat pain, swelling of lips/tongue, tinnitus or epistaxis Card: Denies: chest pain Resp: Denies: dyspnea GI: Denies: vomiting PFSH ED PFSH: Medical History Other reactions to severe stress Psychiatric care Surgical History Previous section Family History Grandfather Cancer colon Colon cancer Grandmother Cancer colon Colon cancer Other Thyroid disease Denies family history of Pancreatic cancer Ovarian cancer Thyroid cancer Diabetes CAD (coronary artery disease) Clotting disorder Dementia Hyperlipidemia Chronic kidney disease (CKD) Breast cancer Anesthesia complication Bleeding disorder Lung disease Hypertension Uterine cancer Stroke Social History Smoking and tobacco/nicotine status: never used tobacco/nicotine Alcohol intake: never Substance/Drug Use: never Adopted: No Caregiver/support person: No Lives independently: Yes Household members: children Marital status: Single Number of children: 1 Current occupational status: employed Current occupation: [employer] Current occupational exposures/hazards: No Current gender identity: Female Special joyce needs: No Female Reproductive History: Para: 1 Physical Exam Const: COMMON NORMALS: no acute distress GENERAL APPEARANCE: cooperative; not ill appearing HENMT: COMMON NORMALS: normocephalic, atraumatic, external ears normal, TM's normal bilaterally and Normal external nose present HEAD & SCALP: normocephalic and atraumatic FACE & SINUS: face symmetric; no erythema NOSE: Normal external nose present and Normal nares present EXTERNAL EAR: Yes external ears normal TYMPANIC MEMBRANE: TM's normal bilaterally MOUTH: lip normal and tongue normal TEETH & GINGIVA: Yes abnormal tooth and associated gingiva (Abscess, #15) THROAT: posterior oropharynx normal Eye: COMMON NORMALS: Equal, round and reactive pupils present and EOMs intact bilaterally PUPIL: Yes Equal, round and reactive pupils present Neck/C-Spine: GENERAL: Yes trachea midline Chest: CHEST: Yes Symmetrical chest wall rise Resp: COMMON NORMALS: normal respiratory effort, No use of accessory muscles and clear to auscultation bilaterally AUSCULTATION: clear to auscultation bilaterally Cardio: COMMON NORMALS: regular rate and regular rhythm RATE: regular rate RHYTHM: regular rhythm Neuro: MIRIAM COMA SCALE: document GCS findings Miriam coma scale eye opening: Spontaneous [place] coma scale verbal response: Orientated Miriam coma scale motor response: Obey commands [place] coma scale total score: 15 Course Vital Signs: Vital signs: Vital Signs Temperature 98 F 11/15/23 02:43 Pulse Rate 98 11/15/23 02:43 Respiratory Rate 15 11/15/23 02:43 Blood Pressure 137/93 11/15/23 02:43 Pulse Oximetry 100 11/15/23 02:43 Oxygen Delivery Me thod Room Air 11/15/23 02:43 MDM - Dental/Oral Medical Decision Making Dental abscess present. Prolonged antibiotics. Counseled that she must see a dentist otherwise abscess will keep returning. No radiology studies performed this visit Discharge Plan Discharge Patient Disposition: Home Clinical Impression: Dental abscess Condition: Stable Prescriptions: New clindamycin HCl 300 mg capsule 300 mg PO Q6H Qty: 60 0RF hydrocodone-acetaminophen 5-325 mg tablet 1 tab PO Q8H PRN (Reason: pain) Qty: 7 0RF Discontinued clindamycin HCl 150 mg capsule 450 mg PO TID 7 Days Qty: 63 0RF No Action fluoxetine 40 mg capsule 40 mg PO DAILY 30 Days Qty: 30 3RF diclofenac sodium [Voltaren Arthritis Pain] 1 % gel 4 g topical QID Qty: 100 0RF Rx Instructions: apply to single knee, ankle, foot; for foot includes sole/toes/top of foot buspirone 5 mg tablet 5 mg PO BID 30 Days Qty: 60 3RF ibuprofen 800 mg tablet 800 mg PO Q8H PRN (Reason: pain) Qty: 30 0RF fluconazole 150 mg tablet 150 mg PO Q3D Qty: 2 0RF Rx Instructions: administer on day 1 of therapy Discharge Orders: Discharge ED (Routine); Ordered 11/15/23 Ordered By: Adán Hayden Referrals: Darin Damon MD [Primary Care Provider] - Patient Instructions: Dental Abscess (ED), Opioid Safety, Pain Management Activity Restrictions/Additional Instructions: Medication as directed. Take antibiotics until they are all gone. Make an appointment with a dentist for follow-up. Return for problems. 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
== END 2023-11-15 03:53 | disposition home or self-care (01) ==
PROVIDERS: Emergency Provider Emergency Medicine; PCP Family Medicine
DX: K04.7 Periapical abscess without sinus (principal)
CPT/HCPCS: 96372; 99284; J1885

== ENCOUNTER 2023-12-16 18:30 | Emergency (ER) | payer MEDICAID, SELFPAY ==
[2023-12-16 18:41] VITALS: BP 127/74; PULSE 100; RESP 16; TEMP 37; O2SAT 98
--- NOTE | 2023-12-16 19:11 | W.ED.DENTAL ---
HPI - Dental/Oral General: Chief complaint: Dental/Oral Stated complaint: tooth pain Time Seen by Provider: 12/16/23 19:03 Source: patient Mode of arrival: ambulatory Limitations: no limitations History of Present Illness: 28-year-old female states that she been having left upper dental pain for the last 2 days she had a history dental caries states she does not have dental insurance does not see a dentist but her pain is worse and rates her pain a 7 out of 10 currently denies any worse improved factors Associated symptoms: Denies fever(s) Review of Systems Const: Denies: fever(s), chills, body aches or change in appetite ENMT: Denies: throat pain or dental pain Card: Denies: chest pain Resp: Denies: dyspnea GI: Denies: abdominal pain, nausea, vomiting or diarrhea Musc: Denies: neck pain or back pain Skin/Breast: Denies: rash Neuro: Denies: headache(s) PFSH ED PFSH: Medical History Other reactions to severe stress Psychiatric care Surgical History Previous section Family History Grandfather Cancer colon Colon cancer Grandmother Cancer colon Colon cancer Other Thyroid disease Denies family history of Pancreatic cancer Ovarian cancer Thyroid cancer Diabetes CAD (coronary artery disease) Clotting disorder Dementia Hyperlipidemia Chronic kidney disease (CKD) Breast cancer Anesthesia complication Bleeding disorder Lung disease Hypertension Uterine cancer Stroke Social History Smoking and tobacco/nicotine status: never used tobacco/nicotine Alcohol intake: never Substance/Drug Use: never Adopted: No Caregiver/support person: No Lives independently: Yes Household members: children Marital status: Single Number of children: 1 Current occupational status: employed Current occupation: [employer] Current occupational exposures/hazards: No Current gender identity: Female Special joyce needs: No Female Reproductive History: Date of last menstrual period: 12/13/23 Para: 1 Physical Exam Const: COMMON NORMALS: patient oriented x3 HENMT: COMMON NORMALS: normocephalic and atraumatic HEAD & SCALP: normocephalic and atraumatic OTHER: Multiple dental caries no abscess Neck/C-Spine: COMMON NORMALS: full ROM and supple Chest: COMMONS NORMALS: normal inspection of the chest Resp: COMMON NORMALS: normal respiratory effort Cardio: COMMON NORMALS: regular rate RATE: regular rate Neuro: COMMON NORMALS: patient oriented x3, moves all extremities and no focal motor deficits Psych: COMMON NORMALS: mental status grossly normal Skin: COMMON NORMALS: no rashes or lesions noted GENERAL SKIN EXAM: no rashes or lesions noted Course Vital Signs: Vital signs: Vital Signs Temperature 98.6 F 12/16/23 18:41 Pulse Rate 100 12/16/23 18:41 Respiratory Rate 16 12/16/23 18:41 Blood Pressure 127/74 12/16/23 18:41 Pulse Oximetry 98 12/16/23 18:41 Oxygen Delivery Me thod Room Air 12/16/23 18:41 MDM - Dental/Oral Medical Decision Making Patient presents with dental pain no signs of abscess no trismus we will start her on antibiotics she is to follow-up with dentist. Medical Records I reviewed the patient's medical records. All radiology interpretation(s) finalized by discharge Discharge Plan Discharge Patient Disposition: Home Clinical Impression: Toothache Condition: Stable Prescriptions: New cephalexin 500 mg capsule 500 mg PO TID 7 Days Qty: 21 0RF Naprosyn 500 mg tablet 500 mg PO BID PRN (Reason: pain) Qty: 20 0RF No Action fluoxetine 40 mg capsule 40 mg PO DAILY 30 Days Qty: 30 3RF diclofenac sodium [Voltaren Arthritis Pain] 1 % gel 4 g topical QID Qty: 100 0RF Rx Instructions: apply to single knee, ankle, foot; for foot includes sole/toes/top of foot buspirone 5 mg tablet 5 mg PO BID 30 Days Qty: 60 3RF ibuprofen 800 mg tablet 800 mg PO Q8H PRN (Reason: pain) Qty: 30 0RF fluconazole 150 mg tablet 150 mg PO Q3D Qty: 2 0RF Rx Instructions: administer on day 1 of therapy clindamycin HCl 300 mg capsule 300 mg PO Q6H Qty: 60 0RF hydrocodone-acetaminophen 5-325 mg tablet 1 tab PO Q8H PRN (Reason: pain) Qty: 7 0RF Discharge Orders: Discharge ED (Routine); Ordered 12/16/23 Ordered By: Colleen Carlos Referrals: Darin Damon MD [Primary Care Provider] - Discharge Diet: Advance as tolerated Discharge Activity: Resume usual activity Patient Instructions: Toothache (ED) Coding Level of Care Code ED Neurological Surgeon for Alize Ferrer
[2023-12-16] MEDS: cephALEXin 500 mg Capsule PO (19:14)
[2023-12-16] MEDS: HYDROcodone-acetaminophen 5-325 mg Tablet 1 TAB PO (19:14)
[2023-12-16] MEDS: ondansetron 4 MG Tablet PO (19:14)
[2023-12-16 19:20] VITALS: PULSE 89; RESP 16; O2SAT 98
== END 2023-12-16 19:20 | disposition home or self-care (01) ==
PROVIDERS: Emergency Provider Emergency Medicine; PCP Family Medicine
DX: K08.89 Other specified disorders of teeth and supporting structures (principal)
CPT/HCPCS: 99283; Q0162

== ENCOUNTER → 2024-07-14 11:43 | Outpatient (BNVA) | payer MEDICAID, SELFPAY | PROVIDERS: PCP Family Medicine; Visit Provider Nurse Practitioner Women's Health | DX: Z34.91 Encounter for supervision of normal pregnancy, unspecified, first trimester (principal); Z3A.08 8 weeks gestation of pregnancy | CPT/HCPCS: 76801; 81025; 86850; 86900 ==

== ENCOUNTER → 2024-08-18 12:00 | Outpatient (BNVA) | payer BC, MEDICAID, SELFPAY | PROVIDERS: PCP Family Medicine; Visit Provider Nurse Practitioner Women's Health | DX: O26.899 Other specified pregnancy related conditions, unspecified trimester (principal); Z67.91 Unspecified blood type, Rh negative; Z3A.00 Weeks of gestation of pregnancy not specified | CPT/HCPCS: 80307; 83036; 84315; 85025; 86592; 86762; 86803; 87086; 87340; 87806 ==

== ENCOUNTER → 2024-09-02 09:07 | Outpatient (BNVA) | payer BC, MEDICAID, SELFPAY | PROVIDERS: PCP Family Medicine; Visit Provider Obstetrics & Gynecology | DX: O09.899 Supervision of other high risk pregnancies, unspecified trimester (principal); Z3A.00 Weeks of gestation of pregnancy not specified | CPT/HCPCS: 82950; 84315; 87491; 87591; 87624; 87661 ==

== ENCOUNTER 2024-11-30 12:38 | Emergency (ER) | payer BC, MEDICAID, SELFPAY ==
[2024-11-30 12:47] VITALS: BP 107/65; PULSE 79; TEMP 36.7; O2SAT 99; BMI 39.6
--- NOTE | 2024-11-30 13:10 | W.ED.DENTAL ---
HPI - Dental/Oral General: Chief complaint: Dental/Oral Stated complaint: R side face and mouth pain Time Seen by Provider: 11/30/24 12:56 Source: patient Mode of arrival: ambulatory Limitations: no limitations History of Present Illness: 29-year-old female who states that she is having right sided dental pain over the last 2 days. Has had a history dental caries the past states that sharp pain worse with eating denies any abscess or trismus denies any fevers denies any difficulty swallowing Associated symptoms: Denies fever(s) Related Data Previous Rx's ?Medication ?Instructions ?Recorded vitamin no.180-ferrous 1 tab PO .daily #90 tabs 08/18/24 fumarate 27 mg-folic acid 1 mg tablet ( Plus Vitamin-Mineral) lidocaine HCl 2 % mucosal solution 2.5 ml topical Q4H PRN dental pain 10/24/24 (Lidocaine Viscous) #50 mL cephalexin 500 mg capsule 500 mg PO TID 7 days #21 caps 11/30/24 ondansetron 4 mg disintegrating 4 mg PO Q6H PRN nausea and 11/30/24 tablet vomiting #14 tabs Allergies Allergy/AdvReac Type Severity Reaction Status Date / Time No Known Allergies Allergy Verified 11/30/24 12:53 Review of Systems Const: Denies: fever(s), chills, body aches or change in appetite ENMT: Reports: mouth pain; Denies: throat pain or dental pain Card: Denies: chest pain Resp: Denies: dyspnea GI: Denies: abdominal pain, nausea, vomiting or diarrhea Musc: Denies: neck pain or back pain Skin/Breast: Denies: rash Neuro: Denies: headache(s) PFS ED PFSH: Medical History No pertinent past medical history neghx: htn, dm, thyroid, dvt/pe PCP: Marisol Other reactions to severe stress Surgical History Previous section (~2019) Family History Grandfather Cancer colon Colon cancer Grandmother Cancer colon Colon cancer Other Thyroid disease Denies family history of Pancreatic cancer Ovarian cancer Thyroid cancer Diabetes CAD (coronary artery disease) Clotting disorder Dementia Hyperlipidemia Chronic kidney disease (CKD) Breast cancer Anesthesia complication Bleeding disorder Lung disease Hypertension Uterine cancer Stroke Social History Smoking and tobacco/nicotine status: never used tobacco/nicotine Alcohol intake: never Substance/Drug Use: never Adopted: No Caregiver/support person: No Lives independently: Yes Household members: children Marital status: Single Number of children: 1 Current occupational status: employed Current occupation: [employer] Current occupational exposures/hazards: No Current gender identity: Female Special joyce needs: No Female Reproductive History: Para: 1 Physical Exam Const: COMMON NORMALS: no acute distress, patient oriented x3 and healthy appearing HENMT: COMMON NORMALS: normocephalic and atraumatic HEAD & SCALP: normocephalic and atraumatic OTHER: Dental caries noticed tenderness over right upper molar no abscess or trismus Eye: COMMON NORMALS: conjunctivae normal CONJUNCTIVA: Yes conjunctivae normal Neck/C-Spine: COMMON NORMALS: full ROM and supple Chest: COMMONS NORMALS: normal inspection of the chest Resp: COMMON NORMALS: normal respiratory effort Cardio: COMMON NORMALS: regular rate RATE: regular rate Extremity: COMMON NORMALS: normal to inspection and full ROM Neuro: COMMON NORMALS: patient oriented x3, moves all extremities and no focal motor deficits Psych: COMMON NORMALS: mental status grossly normal, Normal thought process present and cooperative THOUGHT PROCESS: Normal thought process present Skin: COMMON NORMALS: no rashes or lesions noted and no wounds GENERAL SKIN EXAM: no rashes or lesions noted Course Vital Signs: Vital signs: Vital Signs Temperature 98.1 F 11/30/24 12:47 Pulse Rate 79 11/30/24 12:47 Blood Pressure 107/65 11/30/24 12:47 Pulse Oximetry 99 11/30/24 12:47 Oxygen Delivery Me thod Room Air 11/30/24 12:47 MDM - Dental/Oral Medical Decision Making Patient presents for dental pain along with dental caries she has no abscess or trismus we will place her on Keflex she has to follow-up with her dentist return if worsening Medical Records I reviewed the patient's medical records. No radiology studies performed this visit Discharge Plan Discharge Patient Disposition: Home Clinical Impression: Toothache, Dental caries Condition: Stable Prescriptions: New cephalexin 500 mg capsule 500 mg PO TID 7 Days Qty: 21 0RF ondansetron 4 mg tablet,disintegrating 4 mg PO Q6H PRN (Reason: nausea and vomiting) Qty: 14 0RF Discontinued amoxicillin 500 mg tablet 500 mg PO BID 10 Days Qty: 20 0RF No Action lidocaine HCl [Lidocaine Viscous] 2 % solution 2.5 ml topical Q4H PRN (Reason: dental pain) Qty: 50 0RF Rx Instructions: small amount on/ around sore Plus Vitamin-Mineral 27 mg iron- 1 mg tablet 1 tab PO .daily Qty: 90 3RF Discharge Orders: Discharge ED (Routine); Ordered 11/30/24 Ordered By: Colleen Carlos Referrals: Darin Damon MD [Primary Care Provider, Family Practice] Discharge Diet: Advance as tolerated Discharge Activity: Resume usual activity Patient Instructions: Toothache (ED) Print Language: [place] Arabian Coding Level of Care Code ED Film Or Tape Librarian for Alize Ferrer
[2024-11-30] MEDS: ondansetron hcl ODT 4 mg Tab PO (13:52)
[2024-11-30] MEDS: cephALEXin 500 mg Capsule PO (13:52)
[2024-11-30] MEDS: HYDROcodone-acetaminophen 5-325 mg Tablet 1 TAB PO (13:52)
[2024-11-30 13:58] VITALS: BP 121/59; PULSE 64; RESP 14; O2SAT 98
== END 2024-11-30 13:59 | disposition home or self-care (01) ==
PROVIDERS: Emergency Provider Emergency Medicine; PCP Family Medicine
DX: K08.89 Other specified disorders of teeth and supporting structures (principal); K02.9 Dental caries, unspecified
CPT/HCPCS: 99283; J9999; Q0162

== ENCOUNTER 2024-12-11 00:29 | Emergency (ER) | payer BC, MEDICAID, SELFPAY ==
[2024-12-11 00:33] VITALS: BP 110/75; PULSE 74; RESP 16; TEMP 36.7; O2SAT 99
[2024-12-11] MEDS: ondansetron hcl ODT 4 mg Tab 8 MG PO (04:00)
[2024-12-11] MEDS: sodium chloride 0.9% 1,000 ML 999 ML IV (04:50)
[2024-12-11] MEDS: ondansetron 2 mg/ML SDV 2 mL 4 MG IVP (04:51)
[2024-12-11] MEDS: metoclopramide 5 mg/mL SDV 2 mL 10 MG IVP (04:55)
[2024-12-11] MEDS: LORazepam 1 MG/0.5 ML injection IVP (04:58)
[2024-12-11 05:01] VITALS: BP 103/62; PULSE 83; RESP 17; O2SAT 97
[2024-12-11] MEDS: dexamethasone 4 mg/mL INJ 8 MG IVP (05:01)
--- NOTE | 2024-12-11 05:08 | PC.NURSE ---
Pt sent home with 1tab Zofran and 2x tabs of Oxycodone per Dr Hayden's order.
[2024-12-11] MEDS: amoxicillin-clav 875-125 mg Tablet 1 TAB PO (05:33)
--- NOTE | 2024-12-11 06:04 | ED_ITS ---
HPI - Dental/Oral General: Chief complaint: Dental/Oral Stated complaint: R side face Painful next to ear and jaw N/V Time Seen by Provider: 12/11/24 03:38 History of Present Illness: 29 year old female with right sided jaw pain, radiating into her ear. She has been vomiting. She believes she has a fever. She's been dealing with a toothache/dental Abscess for several weeks now. She's 29 weeks . She finally has a dentist appointment in mid January. Related Data Home Medications ?Medication ?Instructions ?Recorded ?Confirmed acetaminophen 500 mg tablet 500 mg PO Q6H PRN Fever Or Pain 11/30/24 11/30/24 (Tylenol Extra Strength) Previous Rx's ?Medication ?Instructions ?Recorded vitamin no.180-ferrous 1 tab PO .daily #90 ta bs 08/18/24 fumarate 27 mg-folic acid 1 mg tablet ( Plus Vitamin-Mineral) lidocaine HCl 2 % mucosal solution 2.5 ml topical Q4H PRN dental pain 10/24/24 (Lidocaine Viscous) #50 mL amoxicillin 875 mg-potassium 1 tab PO BID 15 days #30 tabs 12/11/24 clavulanate 125 mg tablet hydrocodone 5 mg-acetaminophen 325 1 tab PO Q8H PRN pa in #5 tabs 12/11/24 mg tablet ondansetron 4 mg disintegrating 4 mg PO Q6H PRN nausea and 12/11/24 tablet vomiting #14 tabs Allergies Allergy/AdvReac Type Severity Reaction Status Date / Time No Known Allergies Allergy Verified 11/30/24 12:53 PFSH ED PFSH: Medical History No pertinent past medical history neghx: htn, dm, thyroid, dvt/pe PCP: Marisol Other reactions to severe stress Surgical History Previous section (~2018) Family History Grandfather Cancer colon Colon cancer Grandmother Cancer colon Colon cancer Other Thyroid disease Denies family history of Pancreatic cancer Ovarian cancer Thyroid cancer Diabetes CAD (coronary artery disease) Clotting disorder Dementia Hyperlipidemia Chronic kidney disease (CKD) Breast cancer Anesthesia complication Bleeding disorder Lung disease Hypertension Uterine cancer Stroke Social History Smoking and tobacco/nicotine status: never used tobacco/nicotine Alcohol intake: never Substance/Drug Use: never Adopted: No Caregiver/support person: No Lives independently: Yes Household members: children Marital status: Single Number of children: 1 Current occupational status: employed Current occupation: [employer] Current occupational exposures/hazards: No Current gender identity: Female Special joyce needs: No Female Reproductive History: Para: 1 Physical Exam Const: GENERAL APPEARANCE: cooperative and anxious; not ill appearing and not frail appearing HENMT: COMMON NORMALS: normocephalic, atraumatic, EAC's normal and Normal external nose present HEAD & SCALP: normocephalic and atraumatic FACE & SINUS: normal facial exam and face symmetric NOSE: Normal external nose present EXTERNAL AUDITORY CANAL: EAC's normal TYMPANIC MEMBRANE: TM normal on the right TEETH & GINGIVA: Yes abnormal tooth and associated gingiva and Yes other (r upper molar broken. surrounding edema. ) THROAT: posterior oropharynx normal Eye: COMMON NORMALS: Equal, round and reactive pupils present and EOMs intact bilaterally PUPIL: Yes Equal, round and reactive pupils present Neck/C-Spine: GENERAL: Yes trachea midline Chest: CHEST: Yes Symmetrical chest wall rise Resp: COMMON NORMALS: normal respiratory effort, No retractions, No use of accessory muscles and clear to auscultation bilaterally AUSCULTATION: clear to auscultation bilaterally Cardio: COMMON NORMALS: regular rate and regular rhythm RATE: regular rate RHYTHM: regular rhythm Extremity: COMMON NORMALS: no pedal edema Neuro: MIRIAM COMA SCALE: document GCS findings Miriam coma scale eye opening: Spontaneous Miriam coma scale verbal response: Orientated Miriam coma scale motor response: Obey commands Miriam coma scale total score: 15 SENSORY EXAM: Yes extremities (intact) Psych: COMMON NORMALS: speech normal SPEECH: Yes normal speech Skin: COMMON NORMALS: no rashes or lesions noted GENERAL SKIN EXAM: no rashes or lesions noted Course Vital Signs: Vital signs: Vital Signs Temperature 98.1 F 12/11/24 00:33 Pulse Rate 88 12/11/24 06:33 Respiratory Rate 14 12/11/24 06:33 Blood Pressure 118/71 12/11/24 06:33 Pulse Oximetry 99 12/11/24 06:33 Oxygen Delivery Me thod Room Air 12/11/24 05:01 MDM - Dental/Oral Medical Decision Making She will be treated for dental Abscess. She is vomiting actively here. She's given IV fluid, IV Zofran and Ativan. Vomiting is resolved. Dissolving Zofran and antibiotics for home period to return for worsening symptoms. No radiology studies performed this visit Discharge Plan Discharge Patient Disposition: Home Clinical Impression: Dental abscess Condition: Stable Prescriptions: New amoxicillin-pot clavulanate 875-125 mg tablet 1 tab PO BID 15 Days Qty: 30 0RF hydrocodone-acetaminophen 5-325 mg tablet 1 tab PO Q8H PRN (Reason: pain) Qty: 5 0RF Continued ondansetron 4 mg tablet,disintegrating 4 mg PO Q6H PRN (Reason: nausea and vomiting) Qty: 14 0RF No Action lidocaine HCl [Lidocaine Viscous] 2 % solution 2.5 ml topical Q4H PRN (Reason: dental pain) Qty: 50 0RF Rx Instructions: small amount on/ around sore Plus Vitamin-Mineral 27 mg iron- 1 mg tablet 1 tab PO .daily Qty: 90 3RF acetaminophen [Tylenol Extra Strength] 500 mg Tablet 500 mg PO Q6H PRN (Reason: Fever Or Pain) Discharge Orders: Discharge ED (Routine); Ordered 12/11/24 Ordered By: Adán Hayden Referrals: Darin Damon MD [Primary Care Provider, Family Practice] - 4-7 days Patient Instructions: Dental Abscess (ED), Opioid Safety, Pain Management Print Language: Belarusian Coding Level of Care Code ED Map And Chart Mounter for Alize Ferrer
[2024-12-11 06:33] VITALS: BP 118/71; PULSE 88; RESP 14; O2SAT 99
== END 2024-12-11 06:34 | disposition home or self-care (01) ==
PROVIDERS: Emergency Provider Emergency Medicine; PCP Family Medicine
DX: K04.7 Periapical abscess without sinus (principal)
CPT/HCPCS: 96374; 96375; 99284; J1100; J2060; J2405; J2765; J7030; J9999; Q0162

== ENCOUNTER 2025-01-26 10:02 | Oncology outpatient (recurring) (ONCR) | payer BC, MEDICAID, SELFPAY ==
[2025-01-26] MEDS: rho(d) immune globulin 1,500 unit Syringe 1500 UNIT IM (12:30)
[2025-01-26 12:34] VITALS: BP 106/68; PULSE 78; RESP 17; TEMP 36.9; O2SAT 99
== END 2025-01-30 23:59 | disposition home or self-care (01) ==
PROVIDERS: PCP Family Medicine; Visit Provider Family Medicine
DX: O26.899 Other specified pregnancy related conditions, unspecified trimester (principal); Z67.91 Unspecified blood type, Rh negative
CPT/HCPCS: 36415; 86900; 96372; J2790

== ENCOUNTER 2025-02-08 10:57 | Outpatient (CLI) | payer BC, MEDICAID, SELFPAY ==
[2025-02-08 11:07] VITALS: BP 98/57; PULSE 74; RESP 18
[2025-02-08 11:11] VITALS: RESP 18; TEMP 36.8; BMI 41.1
[2025-02-08 11:22] VITALS: BP 100/59; PULSE 76
[2025-02-08 11:35] VITALS: RESP 16
== END 2025-02-08 11:37 | disposition home or self-care (01) ==
LOC: OPOB 10:57 → OBGYN 10:58
PROVIDERS: PCP Family Medicine; Visit Provider Family Medicine
DX: O36.8390 Maternal care for abnormalities of the fetal heart rate or rhythm, unspecified trimester, not applicable or unspecified (principal); Z3A.00 Weeks of gestation of pregnancy not specified
CPT/HCPCS: 59025; 99211

== ENCOUNTER 2025-02-09 09:40 | Outpatient (CLI) | payer BC, MEDICAID, SELFPAY ==
[2025-02-09 09:40] VITALS: BMI 41.5
[2025-02-09 09:53] VITALS: BP 115/69; PULSE 70
[2025-02-09 10:09] LABS: Nitrazine Paper, PH Inconclusive
[2025-02-09 10:17] VITALS: BP 111/57; PULSE 70
[2025-02-09 10:31] VITALS: BP 111/61; PULSE 63
[2025-02-09 10:51] VITALS: BP 111/61; PULSE 63; O2SAT 98
== END 2025-02-09 10:44 | disposition home or self-care (01) ==
LOC: OPOB 09:44 → OBGYN 10:40
PROVIDERS: PCP Family Medicine; Visit Provider Family Medicine
DX: O26.899 Other specified pregnancy related conditions, unspecified trimester (principal); Z3A.00 Weeks of gestation of pregnancy not specified; N89.8 Other specified noninflammatory disorders of vagina
CPT/HCPCS: 59025; 83986; 84112; 99211

== ENCOUNTER 2025-02-14 05:42 | Inpatient (IN) | payer BC, MEDICAID, SELFPAY ==
[2025-02-13] VITALS (42 sets, daily range): BP systolic 108–125; BP diastolic 52–66; PULSE 45–125; O2SAT 97–100; BMI 42.1; BMI 42.2
[2025-02-14] VITALS (138 sets, daily range): BP systolic 89–149; BP diastolic 46–71; PULSE 41–97; RESP 16–20; TEMP 35.7–37.1; O2SAT 80–100
[2025-02-14] MEDS: fentaNYL 50 mcg/mL INJ 2mL IVP ×3 (04:32→06:50)
[2025-02-14] MEDS: diphenhydrAMINE 50 mg/mL SDV 1mL IVP (04:58)
--- NOTE | 2025-02-14 07:02 | ANES.PAUD2 ---
Pre-Anesthetic Update Pre-Anesthetic Assessment: Date of Surgery/Procedure: 02/14/25 Proposed Procedure: Operation Date: 02/14/25 09:10 Proposed Procedures p Section(Not Applicable) - Parris Osborn MD Any changes to Pre-Anesthetic Assessment?: No Last Intake: >24 hours Vitals: Pulse Rate 90 02/14/25 06:49 Respiratory Rate 20 H 02/14/25 06:50 Respiratory Effort Spontaneous, Non- Labored 02/14/25 06:50 Respiratory Depth Normal 02/14/25 06:50 Respiratory Patter n Normal 02/14/25 06:50 Blood Pressure 127/57 02/14/25 06:49 Pulse Oximetry 100 02/14/25 05:35 Exam: Pre-Anes Outpt Exam: alert, oriented x 3, clear to auscultation bilaterally and regular rate & rhythm
[2025-02-14 07:16] LABS: Hematocrit 29.5 % (36-47); Hemoglobin 9.40 g/dL (11.27-16.99); Mean Corpuscular HGB Conc 31.9 g/dL (30-55); Mean Corpuscular Hemoglobin 27.3 pg (27-33); Mean Corpuscular Volume 85.8 fl (85-98); Nucleated Red Blood Cells % 0 %; Platelet Count 173 10^3/cmm (157-399); Red Blood Count 3.44 10^6/uL (3.85-5.65); White Blood Count 10.76 10^3/uL (3.29-11.43)
[2025-02-14] MEDS: citric acid-sodium citrate 30 mL UDC PO (07:24)
[2025-02-14] MEDS: metoclopramide 5 mg/mL SDV 2 mL 10 MG IVP (07:24)
--- NOTE | 2025-02-14 07:52 | PM.HP ---
Providers/Chief Complaint Admitting Physician: Parris Osborn MD Primary Care Provider: Darin Damon MD Chief Complaint: ctx History of Present Illness Fariha Michael is a 29 year old female at 39 w2 days gestation with hx of prior c section who presented c/o contractions last evening. Her contractions were very minimal to mild and occurring only about every 7-11 minutes. She was not making cervical change. Terbutaline 0.25 mg was ordered however the patient received a dose of 1.0 mg. I called and spoke with poison control who did not have any significant concerns. The patient's contractions abated but she was kept overnight for observation. During the night her contractions returned and became more frequent and painful. When she began to make cervical change decision was made to proceed with repeat section. Review of Systems Narrative: No bleeding, no LOF, positive movement. positive contractions. Medications/Allergies Home Medications ?Medication ?Instructions ?Recorded ?Confirmed ?Last Taken ?Type vitamin no.180-ferrous 1 tab PO .daily #90 tabs 08/18/24 11/30/24 11/29/24 Rx fumarate 27 mg-folic acid 1 mg tablet ( Plus Vitamin-Mineral) lidocaine HCl 2 % mucosal solution 2.5 ml topical Q4H PRN dental pain 10/24/24 11/30/24 Unknown Rx (Lidocaine Viscous) #50 mL acetaminophen 500 mg tablet 500 mg PO Q6H PRN Fever Or Pain 11/30/24 11/30/24 11/30/24 History (Tylenol Extra Strength) hydrocodone 5 mg-acetaminophen 325 1 tab PO Q8H PRN pain #5 tabs 12/11/24 Unknown Rx mg tablet ondansetron 4 mg disintegrating 4 mg PO Q6H PRN nausea and 12/11/24 Unknown Rx tablet vomiting #14 tabs Allergies Allergy/AdvReac Type Severity Reaction Status Date / Time No Known Allergies Allergy Verified 11/30/24 12:53 PFSH Acute PFSH: Medical History (Updated 12/19/24 @ 00:00 by ITALO Solis) No pertinent past medical history neghx: htn, dm, thyroid, dvt/pe PCP: Marisol Other reactions to severe stress Surgical History Previous section (~2018) Family History Grandfather Cancer colon Colon cancer Grandmother Cancer colon Colon cancer Other Thyroid disease Denies family history of Pancreatic cancer Ovarian cancer Thyroid cancer Diabetes CAD (coronary artery disease) Clotting disorder Dementia Hyperlipidemia Chronic kidney disease (CKD) Breast cancer Anesthesia complication Bleeding disorder Lung disease Hypertension Uterine cancer Stroke Social History Smoking and tobacco/nicotine status: never used tobacco/nicotine Alcohol intake: never Substance/Drug Use: never Adopted: No Caregiver/support person: No Lives independently: Yes Household members: children Marital status: Single Number of children: 1 Current occupational status: employed Current occupation: [employer] Current occupational exposures/hazards: No Current gender identity: Female Special joyce needs: No Female Reproductive History: : 2 Para: 1 Other female reproductive history: The patient was a transfer [facility] in approximately 20 weeks gestation. There were no complications during the . 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 referral. However father was unavailable for carrier testing. labs: Blood type A-, antibody negative, hepatitis B nonreactive, hepatitis C nonreactive, HIV nonreactive, RPR nonreactive, rubella immune, GC chlamydia negative, she was trichomonas positive at the beginning of the and was treated, she passed her glucose tolerance test. The patient was passive about scheduling her RhoGAM injection so she received it rather late at approximately 34-35 weeks gestation. Vitals/I&O/Wt Last Vital Signs Pulse 90 02/14/25 06:49 Resp 20 H 02/14/25 06:50 BP 127/57 02/14/25 06:49 Pulse Ox 100 02/14/25 05:35 O2 Del Method Room Air 02/13/25 20:15 02/13/25 02/14/25 02/14/25 22:59 06:59 14:59 Intake Total 1000 / 1000 Balance 1000 / 1000 Weight last 48 hrs Weight 101.378 kg Weight 101.151 kg Physical Exam Narrative: A&O, moderate distress, RRR, CTA B, gravid, nontender, no calf tenderness Data 02/14/25 21:26 A&P Assessment and plan 1. Previous delivery affecting : repeat section planned imminently. 2. Rh negative status during : 3. Supervision of other high-risk : 4. Obesity affecting : PDMP PDMP Reviewed: Not Reviewed Attestations Medical Necessity Statement*: Routine surgery and postoperative care Coding Level of Care Code Acute Code for Chg Fwd Diagnoses Previous delivery affecting O34.219 Rh negative status during O26.899; Z67.91 Supervision of other high-risk O09.899 Obesity affecting O99.210
--- NOTE | 2025-02-14 08:58 | P.OP_ITS ---
Operative Report Date of procedure: February 14, 2025 Pre-op diagnosis: Repeat section Post-op diagnosis: Repeat section Procedure done: Repeat low-transverse section Via Pfannenstiel skin incision. Specimens removed/disposition: Vertex male weight 3475 g, 7 pounds 11 ounces, Apgars 8 and 9 Surgeon: Parris Osborn MD Estimated blood loss (mL): 500 IV fluids (mL): 1,000 Urine output (mL): 200 Procedure: After informed consent the patient was taken to the OR where spinal anesthesia was administered. She was prepped and draped in normal sterile fashion in dorsal supine position with a left lateral tilt. After adequate spinal anesthesia was verified a Pfannenstiel skin incision was made through the previous scar and carried through to the underlying layer of fascia sharply. The fascial incision was then extended laterally using the Mayos. The fascia was grasped with Lilo clamps and the underlying rectus muscles were dissected off taking care to avoid injury to the underlying tissue. The peritoneum was entered bluntly using a hemostat and the incision site was manually stretched. The bladder blade was inserted. The vesicouterine peritoneum was rather scarred to the lower uterine segment. It was entered sharply using the Metzenbaums and a bladder flap was created. The bladder blade was then reinserted. The lower uterine segment was very thin. Uterine incision was made in a transverse fashion and amniotic rupture of membranes was performed sharply with clear fluid. The vertex was delivered atraumatically with bulb suction of the mouth and nares at delivery. The cord was clamped and cut. Cord blood was obtained. The was handed to the waiting pediatric nurse. The placenta was delivered using fundal pressure. The uterus was then exteriorized from the abdomen and a dry sponge was used to clear the uterus of clots and debris. The uterine incision was repaired using 0 chromic in a ru nning locked fashion. A second layer of the same suture was used in an imbricating manner. There was excellent hemostasis. The uterus was then returned to the abdomen. Irrigation was used to clear the gutters of clots and debris. Uterine incision was then reinspected for hemostasis. The peritoneum was then reapproximated using 4-0 Vicryl in a running fashion. The subfascial tissue was inspected for hemostasis and the fascia was then reapproximated using 0 Vicryl in a running fashion. The subcutaneous tissue was then irrigated and any small bleeders were coagulated using the Bovie. The subcutaneous tissue was then reapproximated using 4-0 Vicryl in a running fashion. The skin was reapproximated using 4-0 Vicryl in a running fashion on a Bubba needle. Steri- Strips and a pressure bandage were applied and patient went to recovery in good condition. Sponge instrument and needle counts were correct.
[2025-02-14] MEDS: HYDROcodone-acetaminophen 5-325 mg Tablet PO ×2 (15:34→20:18)
--- NOTE | 2025-02-14 16:37 | PC.NURSE ---
pt ambulated 2 laps around OB unit
[2025-02-14] MEDS: ferrous sulfate EC 325 mg Tablet PO (18:42)
[2025-02-14 21:47] LABS: Hematocrit 27.7 % (36-47); Hemoglobin 8.60 g/dL (11.27-16.99); Mean Corpuscular HGB Conc 31.0 g/dL (30-55); Mean Corpuscular Hemoglobin 26.9 pg (27-33); Mean Corpuscular Volume 86.6 fl (85-98); Platelet Count 204 10^3/cmm (157-399); Red Blood Count 3.20 10^6/uL (3.85-5.65); White Blood Count 10.31 10^3/uL (3.29-11.43)
[2025-02-15] MEDS: HYDROcodone-acetaminophen 5-325 mg Tablet PO ×6 (00:35→23:38)
[2025-02-15 04:13] VITALS: BP 101/59; PULSE 85
[2025-02-15] MEDS: ferrous sulfate EC 325 mg Tablet PO ×2 (09:08→17:40)
[2025-02-15] MEDS: PRENATAL VIT NO.130/IRON/FOLIC 1 EACH TABLET PO (09:08)
[2025-02-15 10:35] VITALS: BP 110/60; PULSE 95
[2025-02-15 10:39] VITALS: RESP 16; TEMP 36.6
[2025-02-15 15:03] VITALS: BP 103/60; PULSE 75; RESP 17; TEMP 36.3
[2025-02-15 15:05] VITALS: BP 103/60; PULSE 75
--- NOTE | 2025-02-15 16:55 | P.PN_ITS ---
Subjective 2 Subjective: Postop day 1 repeat section Passing flatus, doing well. No complaints. Vitals/I&O/Wt Last Vital Signs Temp 97.4 F L 02/15/25 15:03 Pulse 75 02/15/25 15:05 Resp 17 02/15/25 15:03 BP 103/60 02/15/25 15:05 Pulse Ox 98 02/14/25 20:18 O2 Del Method Room Air 02/14/25 20:18 02/15/25 02/15/25 02/15/25 06:59 14:59 22:59 Intake Total 0 / 0 Balance 0 / 0 Weight last 48 hrs Weight 101.378 kg Weight 101.151 kg Physical Exam 2 Narrative: Alert and oriented sitting up in bed with her 2 children, heart regular rate and rhythm, lungs clear to auscultation bilaterally, abdomen is soft with appropriate postoperative tenderness, pressure bandage is still in place, extremities have 1+ edema but no calf tenderness Urinary Catheter Management: Barker Latex Free: Cath Placed During This Visit: yes, but has since been removed by the nurse Reason for Continuing Indwelling Catheter: Decision to DC Catheter Urinary Catheter Date of Insertion: 02/14/25 Urinary Catheter Time of Insertion: 08:00 Date Urinary Catheter Removed: 02/14/25 Time Urinary Catheter Discontinued: 16:30 Data 02/14/25 21:26 A&P Assessment and plan 1. Status post repeat low transverse section: Continue routine postoperative care, encourage ambulation PDMP PDMP Reviewed: Not Reviewed Attestations 2 Medical Necessity Statement*: Routine postoperative care Coding Level of Care Code Acute Code for Chg Fwd Diagnoses Status post repeat low transverse section Z98.891
[2025-02-15 20:32] VITALS: BP 108/61; PULSE 72; TEMP 35.8
[2025-02-16 05:10] VITALS: TEMP 36.4
[2025-02-16 05:11] VITALS: BP 109/62; PULSE 79
[2025-02-16] MEDS: HYDROcodone-acetaminophen 5-325 mg Tablet PO ×2 (07:47→15:30)
[2025-02-16 09:42] VITALS: BP 120/71; PULSE 93; RESP 16; TEMP 36.6
[2025-02-16] MEDS: PRENATAL VIT NO.130/IRON/FOLIC 1 EACH TABLET PO (09:42)
[2025-02-16] MEDS: ferrous sulfate EC 325 mg Tablet PO (09:42)
[2025-02-16 15:32] VITALS: BP 118/70; PULSE 81
--- NOTE | 2025-02-16 16:07 | PM.DCS ---
Discharge Providers Date of Admission: 02/14/25 05:42 Date of Discharge: February 16, 2025 Attending Provider at Admission: Parris Osborn MD Attending Provider at Discharge: Parris Osborn MD Primary Care Provider: Darin Damon MD Diagnoses at Discharge Discharge Diagnosis 1. Status post repeat low transverse section: Reason for Visit Reason for Visit: ctx Hospital Course Hospital Course This is a 29-year-old G2 now P2 who underwent a repeat section when she presented to labor and delivery in active labor. She had an uncomplicated postoperative course. She was ambulating, tolerating a regular diet, had decent pain control and was comfortable with discharge home. Physical Exam Narrative: Alert and oriented, walking around the room holding the , heart regular rate and rhythm, lungs clear to auscultation bilaterally, abdomen is soft with appropriate postoperative tenderness, incision is clean dry and intact with Steri-Strips in place. Extremities have 1+ edema but no calf tenderness Urinary Catheter Management: Barker Latex Free: Cath Placed During This Visit: yes, but has since been removed by the nurse Reason for Continuing Indwelling Catheter: Decision to DC Catheter Urinary Catheter Date of Insertion: 02/14/25 Urinary Catheter Time of Insertion: 08:00 Date Urinary Catheter Removed: 02/14/25 Time Urinary Catheter Discontinued: 16:30 Discharge Data Studies Completed and Pending Pending at discharge Category Date Time Status Antibody Identification Routine Lab 02/14/25 07:02 Results Complete Crossmatch Stat Lab 02/14/25 07:02 Results Leukocyte Reduced RBC Stat Lab 02/14/25 07:02 Results Rho D Immune Globulin Stat Lab 02/14/25 07:02 Results Type and Screen Routine Lab 02/14/25 07:02 Results Laboratory Results WBC 10.31 10^3/uL (3.29-11.43) 02/14/25 21: RBC 3.20 10^6/uL (3.85-5.65) L 02/14/25 21: Hgb 8.60 g/dL (11.27-16.99) L 02/14/25 21: Hct 27.7 % (36-47) L 02/14/25: MCV 86.6 fl (85-98) 02/14/25 21: MCH 26.9 pg (27-33) L 02/14/25: MCHC 31.0 g/dL (30-55) 02/14/25 21: RDW 13.9 % (12.1-15.1) 02/14/25 21: Plt Count 204 10^3/cmm (157-399) 02/14/25 21: MPV 10.7 fL (7.4-10.4) H 02/14/25 21:26 Neut % (Auto) 84.4 % 02/14/25 07:02 Lymph % (Auto) 9.9 % 02/14/25 07:02 Moffat % (Auto) 4.6 % 02/14/25 07:02 Eos % (Auto) 0.1 % 02/14/25 07:02 Baso % (Auto) 0.3 % 02/14/25 07:02 Neut # (Auto) 9.09 10^3/uL (1.8-7.7) H 02/14/25 07:02 Lymph # (Auto) 1.1 10^3/uL (0.8-4.8) 02/14/25 07:02 Moffat # (Auto) 0.5 10^3/uL (0.2-0.9) 02/14/25 07:02 Eos # (Auto) 0.0 10^3/uL (0.0-0.8) 02/14/25 07:02 Baso # (Auto) 0.0 10^3/uL (0.0-0.1) 02/14/25 07:02 Nucleated RBC % (auto) 0 % 02/14/25 07:02 Nucleated RBCs # 0.0 /100WBC 02/14/25 07:02 Blood Type A Negative 02/14/25 07:02 Rho(D) Type Rh negative 02/14/25 07:02 Antibody Screen Positive 02/14/25 07:02 Antibody Identification Anti-D 02/14/25 07:02 Screen Negative (Negative) 02/14/25 21: Crossmatch See Detail 02/14/25 07:02 Vitals Last Vital Signs Temp 97.9 F 02/16/25 09:42 Pulse 81 02/16/25 15:32 Resp 16 02/16/25 09:42 BP 118/70 02/16/25 15:32 Pulse Ox 98 02/14/25 20:18 O2 Del Method Room Air 02/14/25 20:18 Discharge Plan Discharge Patient Disposition: Home Condition: Stable Prescriptions: New ibuprofen 800 mg Tablet 800 mg PO TID PRN (Reason: Abdominal Discomfort) Qty: 40 0RF hydrocodone-acetaminophen 5-325 mg Tablet 1 - 2 tab PO Q4H PRN (Reason: Moderate To Severe Pain) Qty: 12 0RF docusate sodium 100 mg Capsule 100 mg PO BID Qty: 60 0RF Continued Plus Vitamin-Mineral 27 mg iron- 1 mg tablet 1 tab PO .daily Qty: 90 3RF Discontinued lidocaine HCl [Lidocaine Viscous] 2 % solution 2.5 ml topical Q4H PRN (Reason: dental pain) Qty: 50 0RF Rx Instructions: small amount on/ around sore acetaminophen [Tylenol Extra Strength] 500 mg Tablet 500 mg PO Q6H PRN (Reason: Fever Or Pain) ondansetron 4 mg tablet,disintegrating 4 mg PO Q6H PRN (Reason: nausea and vomiting) Qty: 14 0RF hydrocodone-acetaminophen 5-325 mg tablet 1 tab PO Q8H PRN (Reason: pain) Qty: 5 0RF Discharge Order = DC NOW: Discharge Order (Routine); Ordered 02/16/25 Ordered By: Parris Osborn Referrals: Parris Osborn MD [Physician, Family Practice] - 02/21/25 11:00 am Discharge Diet: Usual diet Discharge Activity: Limit activity as instructed Patient Instructions: Depression (DC), Opioid Safety (DC), Preeclampsia and Eclampsia After Delivery (GEN), Hemorrhage (DC), OB - Boris/Anurag, OB Discharge Report, OB Food/Drug Interaction Guide, OB Care at Home, Opioid Safety, Patient Portal & Rom Instructions, Abnormal Bleeding Activity Restrictions/Additional Instructions: No lifting anything greater than 10 pounds for 2 weeks. Nothing per vagina for 6 weeks. Discharge Attestations Time Spent in Discharge Care*: less than 30 min Quality Metrics Clinical Quality Measures [ No reported AMI, CVA or VTE this stay] Coding Level of Care Code Acute Code for Chg Fwd Diagnoses Status post repeat low transverse section Z98.891
[2025-02-16 18:00] VITALS: BP 119/72; PULSE 85; RESP 16; TEMP 36.6; TEMP 36.7
[2025-02-16 18:15] VITALS: BP 119/72; PULSE 85; RESP 16; TEMP 36.6; O2SAT 99
== END 2025-02-16 18:35 | disposition home or self-care (01) | DRG 787 ==
PROVIDERS: Admitting Provider Family Medicine; PCP Family Medicine; Visit Provider Family Medicine
PROC: 10D00Z1 Extraction of Products of Conception, Low, Open Approach (ICD-10-PCS; CPT 59514; principal; 2025-02-14 08:50)
DX: O34.211 Maternal care for low transverse scar from previous cesarean delivery (principal); O36.0930 Maternal care for other rhesus isoimmunization, third trimester, not applicable or unspecified; O99.834 Other infection carrier state complicating childbirth; O99.214 Obesity complicating childbirth; Z3A.39 39 weeks gestation of pregnancy; Z37.0 Single live birth; Z79.891 Long term (current) use of opiate analgesic; Z14.8 Genetic carrier of other disease
CPT/HCPCS: 36415; 36430; 51702; 59025; 59409; 80503; 85025; 85027; 85460; 86850; 86870; 86900; 86920; 90384; 96372; 96374; 99211; J1200; J1885; J2274; J2405; J2765; J3010; J3105; J3490; J7030; J7120; J7121; J9999